=== PATIENT | male | born 1940 | race Caucasian/White ===

== ENCOUNTER 2017-04-22 16:43 | Observation (INO) | payer MEDICARE, OTHER ==
[~2017-04-22] VITALS: Ht 177.8 cm; Wt 70.0 kg
[~2017-04-22 16:43] MED LIST: APIX5TAB PO; ATOR1TAB18 PO; ATOR20TA15 PO; BRIL90TA PO; CARV12.52 PO; CIPR-9 PO; FEXO180T PO; FURO20TA PO; LISI10TA3 PO; PHEN-425 PO; SPIR25TA PO
[2017-04-22 16:45] VITALS: BP 133/93; PULSE 110; RESP 13; TEMP 97.3; O2SAT 96
[2017-04-22 16:56] VITALS: O2SAT 99
--- NOTE | 2017-04-22 17:08 | PD ---
HPI Chief Complaint: Cardiac Complaint Time Seen by Provider: 17:03 Travel History International Travel<30 days: No Contact w/Intl Traveler<30days: No Traveled to known affect area: No History of Present Illness HPI C/O CP , PRESSURE, 7/10, NONRAD. ALONG WITH IRREG HR, WANTS TO MAKE SURE " HEART IS OKAY" SINCE THE SENSATION REMINDS HIM OF HIS LAST HEART ATTACK. IN ADDITION TO PREVIOUS SYMPTOMS ALSO C/O GENERALIZED WEAKNESS AND LETHARGY ACCOMPANIED HIS LAST SET OF CHEST PRESSURE PCP IS DR PADGETT CARDIO IS [facility]GY : MULTIPLE BUT CONSISTENT WITH ABOVE PMHX: CAD WITH MULTIPLE STENTS, HTN, AFLUTTER S/P MULTIPLE ABLATIONS ON ELIQUIS [facility] Past Medical History Hx Anticoagulant Therapy: Yes (ELIQUIS) Arthritis: Yes Asthma: No Atrial Fibrillation: Yes Autoimmune Disease: No Blood Disorders: No Anxiety: No Depression: No Heart Rhythm Problems: Yes (ablation for a-flutter; now monitored for a- fib) Cancer: No Cardiac Catheterization: Yes (4 stents) Cardiovascular Problems: Yes (STENTS) High Cholesterol: Yes Chemotherapy: No Chest Pain: Yes Congestive Heart Failure: No COPD: No Cerebrovascular Accident: Yes ([place] 2016) Coronary Artery Disease: Yes Diabetes: No Diminished Hearing: No Endocrine: No Gastrointestinal Disorders: No GERD: No Glaucoma: No Genitourinary: No Headaches: Yes (OCCASIONAL) Hepatitis: No Hiatal Hernia: No Hypertension: Yes Immune Disorder: No Implanted Vascular Access Dvce: Yes Kidney Stones: No Musculoskeletal: Yes Neurologic: Yes Psychiatric: No Reproductive: No Respiratory: Yes Immunizations Current: No Migraines: No Myocardial Infarction: Yes Radiation Therapy: No Renal Failure: No Seizures: No Sickle Cell Disease: No Sleep Apnea: No Thyroid Disease: No Ulcer: No Past Surgical History Abdominal Surgery: No AICD: No Appendectomy: No Arteriovenous Shunt: No Cardiac Surgery: Yes (ablation for a- flutter) Cholecystectomy: No Coronary Artery Bypass Graft: No Coronary Stent: Yes Ear Surgery: No Endocrine Surgery: No Eye Surgery: No Genitourinary Surgery: No Gynecologic Surgery: No Insulin Pump: No Joint Replacement: Yes (R KNEE REPLACEMENT, RIGHT HIP ) Neurologic Surgery: No Oral Surgery: No Pacemaker: No Thoracic Surgery: No Tonsillectomy: Yes Other Surgery: Yes Social History Alcohol Use: No Tobacco Use: No Substance Use: No Allergies-Medications (Allergen,Severity, Reaction): Coded Allergies: diatrizoate meglumine (Verified Allergy, Intermediate, Rash, 04/23/17) Rash on trunk area gadobenic acid (Verified Allergy, Intermediate, Rash, 04/23/17) Rash on trunk area gadodiamide (Verified Allergy, Intermediate, Rash, 04/23/17) Rash on trunk area gadoteridol (Verified Allergy, Intermediate, Rash, 04/23/17) Rash on trunk area iodixanol (Verified Allergy, Intermediate, Rash, 04/23/17) Rash on trunk area iohexol (Verified Allergy, Intermediate, Rash, 04/23/17) Rash on trunk area metoprolol (Verified Allergy, Intermediate, hives, 04/23/17) morphine (Verified Allergy, Intermediate, pustular rash, itching, 04/23/17) naproxen (Verified Allergy, Intermediate, hives, 04/23/17) Reported Meds & Prescriptions Reported Meds & Active Scripts Active Reported Eliquis (Apixaban) 5 Mg Tab 5 Mg PO BID Fexofenadine (Fexofenadine HCl) 180 Mg Tab 180 Mg PO DAILY Lisinopril 10 Mg Tab 10 Mg PO DAILY Furosemide 20 Mg Tab 20 Mg PO DAILY Spironolactone 25 Mg Tab 25 Mg PO DAILY Atorvastatin (Atorvastatin Calcium) 80 Mg Tab 80 Mg PO HS Review of Systems Except as stated in HPI: all other systems reviewed are Neg Cardiovascular: Positive: Chest Pain or Discomfort, Palpitations, Irregular Rhythm Physical Exam Narrative GENERAL: SKIN: Warm and dry. HEAD: Atraumatic. Normocephalic. EYES: Pupils equal and round. No scleral icterus. No injection or drainage. ENT: No nasal bleeding or discharge. Mucous membranes pink and moist. NECK: Trachea midline. No JVD. CARDIOVASCULAR: TACHYCARDIC RATE and IRREGULAR rhythm. RESPIRATORY: No accessory muscle use. Clear to auscultation. Breath sounds equal bilaterally. GASTROINTESTINAL: Abdomen soft, non-tender, nondistended. Hepatic and splenic margins not palpable. MUSCULOSKELETAL: Extremities without clubbing, cyanosis, or edema. No obvious deformities. NEUROLOGICAL: Awake and alert. No obvious cranial nerve deficits. Motor grossly within normal limits. Five out of 5 muscle strength in the arms and legs. Normal speech. PSYCHIATRIC: Appropriate mood and affect; insight and judgment normal. Data Data Last Documented VS Vital Signs Date Time Temp Pulse Resp B/P (MAP) Pulse Ox O2 Delivery O2 Flow Rate FiO2 04/22/17 18:29 107 18 121/87 (98) 98 Room Air 04/22/17 16:45 97.3 Orders Orders Electrocardiogram (04/22/17 16:48) Complete Blood Count With Diff (04/22/17 16:48) Basic Metabolic Panel (Bmp) (04/22/17 16:48) Ckmb (Isoenzyme) Profile (04/22/17 16:48) Troponin I (04/22/17 16:48) Chest, Single Ap (04/22/17 16:48) Iv Access Insert/Monitor (04/22/17 16:48) Ecg Monitoring (04/22/17 16:48) Oxygen Administration (04/22/17 16:48) Oximetry (04/22/17 16:48) Diltiazem Inj (Cardizem Inj) (04/22/17 17:15) Ct Brain W/O Iv Contrast(Rout) (04/22/17 17:31) CKMB (04/22/17 17:10) CKMB% (04/22/17 17:10) Prothrombin Time / Inr (Pt) (04/22/17 18:42) Act Partial Throm Time (Ptt) (04/22/17 18:42) Place In Observation (04/22/17 18:42) Activity Bed Rest With Brp (04/22/17 18:42) Vital Signs (Adult) Q4H (04/22/17 18:42) Cardiac Rhythm .As Directed (04/22/17 18:42) Notify Dr: Other .PRN (04/22/17 18:42) Notify Dr. Parameters (04/22/17 18:42) Resp Oxygen Nasal Cannula (04/22/17 ) Ckmb (Isoenzyme) Profile (04/22/17 18:42) Ckmb (Isoenzyme) Profile (04/22/17 21:42) Troponin I (04/22/17 18:42) Troponin I (04/22/17 21:42) Electrocardiogram (04/22/17 21:42) ^ Obtain (04/22/17 18:42) Sodium Chlor 0.9% 1000 Ml Inj (Ns 1000 M (04/22/17 18:42) Sodium Chloride 0.9% Flush (Ns Flush) (04/22/17 18:45) Nitroglycerin Sl (Nitrostat Sl) (04/22/17 18:45) Sinter Feeder / Telemetry JC.Q8H (04/22/17 18:42) Admit Order (Ed Use Only) (04/22/17 18:45) Diltiazem Inj (Cardizem Inj) (04/22/17 18:45) Labs Laboratory Tests Test 04/22/17 17:10 White Blood Count 5.8 TH/MM3 Red Blood Count 4.32 MIL/MM3 Hemoglobin 14.0 GM/DL Hematocrit 42.1 % Mean Corpuscular Volume 97.5 FL Mean Corpuscular Hemoglobin 32.4 PG Mean Corpuscular Hemoglobin Concent 33.3 % Red Cell Distribution Width 13.3 % Platelet Count 192 TH/MM3 Mean Platelet Volume 9.5 FL Neutrophils (%) (Auto) 45.4 % Lymphocytes (%) (Auto) 43.0 % Monocytes (%) (Auto) 7.8 % Eosinophils (%) (Auto) 3.2 % Basophils (%) (Auto) 0.6 % Neutrophils # (Auto) 2.6 TH/MM3 Lymphocytes # (Auto) 2.5 TH/MM3 Monocytes # (Auto) 0.5 TH/MM3 Eosinophils # (Auto) 0.2 TH/MM3 Basophils # (Auto) 0.0 TH/MM3 CBC Comment DIFF FINAL Differential Comment Prothrombin Time 11.4 SEC Prothromb Time International Ratio 1.0 RATIO Activated Partial Thromboplast Time 30.8 SEC Blood Urea Nitrogen 29 MG/DL Creatinine 0.73 MG/DL Random Glucose 95 MG/DL Calcium Level 8.5 MG/DL Sodium Level 140 MEQ/L Potassium Level 4.1 MEQ/L Chloride Level 109 MEQ/L Carbon Dioxide Level 25.2 MEQ/L Anion Gap 6 MEQ/L Estimat Glomerular Filtration Rate 105 ML/MIN Total Creatine Kinase 130 U/L Creatine Kinase MB 3.3 NG/ML Troponin I LESS THAN 0.02 NG/ML MDM Medical Decision Making Medical Screen Exam Complete: Yes Emergency Medical Condition: Yes Medical Record Reviewed: Yes Interpretation(s) AFLUTTER, 110, LVH, Q WAVES ON INF LEADS Differential Diagnosis STEMI V NONSTEMI V CHF V ANEMIA Narrative Course PATIENT CHEST PRESSURE RESOLVED AND FIRST SET OF TROPONIN WERE NEGATIVE, WILL ADMIT TO CHEST PAIN CENTER FOR FURTHER EVALUATION AND CARE. Diagnosis Primary Impression: CHEST PAIN R/O WV Additional Impression: ATRIAL FLUTTER S/P CARDIZEM FOR RATE CONTROL Admitting Information Admitting Physician Requests: Observation Scripts Metoprolol Succinate ER 24 HR (Metoprolol Succinate ER 24 HR) 50 Mg Tab 50 MG PO DAILY for Blood Pressure Management, #30 TAB Prov: Cole Mathis 04/24/17 Mark Vitale MD Apr 22, 2017 17:08
[2017-04-22] MEDS ORDERED: DILTIAZEM HCL 25 MG/5 ML VIAL IV ONE ×2 (17:15→18:45)
--- NOTE | 2017-04-22 17:40 | RADRPT ---
EXAM DATE/TIME: 04/22/2017 17:05 [facility] COMPARISON: CHEST SINGLE AP, June 10, 2016, 12:12. INDICATIONS : Chest pain, shortness of breath and lightheaded. MEDICAL HISTORY : Myocardial infarction. SURGICAL HISTORY : Cardiac stent. ENCOUNTER: Initial ACUITY: 1 day PAIN SCORE: 5/10 LOCATION: Chest, midline. FINDINGS: A single view of the chest demonstrates the lungs to be symmetrically aerated without evidence of mas s, infiltrate or effusion. The cardiomediastinal contours are unremarkable. Osseous structures are intact. CONCLUSION: No acute disease. Catalino Nicholas MD on April 22, 2017 at 17:38 Board Certified Radiologist. This report was verified electronically.
[2017-04-22 17:51] LABS: AUTOMATED NEUTROPHIL # 2.6 TH/MM3 (1.8-7.7); BASOPHIL % 0.6 % (0.0-2.0); EOSINOPHIL # 0.2 TH/MM3 (0-0.4); EOSINOPHIL % 3.2 % (0.0-4.0); HEMATOCRIT 42.1 % (39.0-51.0); HEMO FLAGS DIFF FINAL; LYMPHOCYTE # 2.5 TH/MM3 (1.0-4.8); MEAN CELL VOLUME 97.5 FL (80.0-100.0); MEAN CORPUSCULAR HEMOGLOBIN 32.4 PG (27.0-34.0); MEAN CORPUSCULAR HGB CONC 33.3 % (32.0-36.0); MONO % 7.8 % (0.0-8.0); NEUT % 45.4 % (16.0-70.0); PLATELET COUNT 192 TH/MM3 (150-450); RED BLOOD COUNT 4.32 MIL/MM3 (4.50-5.90); RED CELL DISTRIBUTION WIDTH 13.3 % (11.6-17.2); WHITE BLOOD COUNT 5.8 TH/MM3 (4.0-11.0)
[2017-04-22 18:18] LABS: CREATINE KINASE 130 U/L (39-308)
--- NOTE | 2017-04-22 18:24 | RADRPT ---
EXAM DATE/TIME: 04/22/2017 18:11 [facility] COMPARISON: No previous studies available for comparison. INDICATIONS : Headaches with chest tightness. RADIATION DOSE: 48.57 CTDIvol (mGy) MEDICAL HISTORY : Cardiovascular disease. Cerebrovascular disease. Hypertension. SURGICAL HISTORY : None. ENCOUNTER: Initial ACUITY: 1 day PAIN SCALE: 2/10 LOCATION: cranial TECHNIQUE: Multiple contiguous axial images were obtained of the head. Using automated exposure control and adj ustment of the mA and/or kV according to patient size, radiation dose was kept as low as reasonably a chievable to obtain optimal diagnostic quality images. DICOM format image data is available electro nically for review and comparison. FINDINGS: CEREBRUM: The ventricles are normal for age. No evidence of midline shift, mass lesion, hemorrhage or acute in farction. No extra-axial fluid collections are seen. POSTERIOR FOSSA: The cerebellum and brainstem are intact. The 4th ventricle is midline. The cerebellopontine angle i s unremarkable. EXTRACRANIAL: The visualized portion of the orbits is intact. SKULL: The calvaria is intact. No evidence of skull fracture. CONCLUSION: Normal examination. Catalino Nicholas MD on April 22, 2017 at 18:22 Board Certified Radiologist. This report was verified electronically.
[2017-04-22 18:27] LABS: ANION GAP 6 MEQ/L (5-15); BICARBONATE 25.2 MEQ/L (21.0-32.0); BLOOD UREA NITROGEN 29 MG/DL (7-18); CHLORIDE 109 MEQ/L (98-107); GLOMERULAR FILTRATION RATE 105 ML/MIN (>89); POTASSIUM 4.1 MEQ/L (3.5-5.1); SODIUM (NA) 140 MEQ/L (136-145)
[2017-04-22 18:29] VITALS: BP 121/87; PULSE 107; RESP 18; O2SAT 98
[2017-04-22 18:30] LABS: CKMB 3.3 NG/ML (0.5-3.6)
[2017-04-22] MEDS ORDERED: SODIUM CHLORIDE 0.9% FLUSH 10 ML FLUSH IV FLUSH PRN (18:45)
[2017-04-22] MEDS ORDERED: NITROGLYCERIN 0.4 MG SL 25 TABS/BTL SL PRN (18:45)
[2017-04-22 19:07] LABS: APTT (PATIENT) 30.8 SEC (24.3-30.1); PROTHROMBIN TIME - PATIENT 11.4 SEC (9.8-11.6)
[2017-04-22] MEDS: SODIUM CHLOR 0.9% 1000 ML INJ 1,000 ML IV SCH (21:22)
[2017-04-22 21:29] VITALS: BP 123/83; PULSE 70; RESP 17; TEMP 97.7; O2SAT 96
[2017-04-22 21:52] VITALS: PULSE 60
[2017-04-22 23:25] VITALS: BP 111/60; PULSE 60; RESP 18; TEMP 97.5; O2SAT 95
[2017-04-23] VITALS (11 sets, daily range): BP systolic 113–130; BP diastolic 56–80; PULSE 58–79; RESP 16–20; TEMP 97.6–98.3; O2SAT 95–97
[2017-04-23] MEDS: SODIUM CHLOR 0.9% 1000 ML INJ 1,000 ML IV SCH (04:42)
--- NOTE | 2017-04-23 05:58 | EKG ---
Date Performed: 04/22/2017 Time Performed: 17:01:55 PTAGE: 76 years EKG: ATRIAL FLUTTER/TACHYCARDIA WITH RAPID VENTRICULAR RESPONSE MINIMAL VOLTAGE CRITERIA FOR LVH , CONSIDER NORMAL VARIANT INFERIOR MYOCARDIAL INFARCTION ABNORMAL ECG INTERPRETATION BASED ON A DEFAU LT AGE OF 42 YEARS PREVIOUS TRACING : 06/10/2016 12.14 DOCTOR: Wesley Lacy Interpretating Date/Time 04/23/2017 05:55:13
[2017-04-23] MEDS ORDERED: ONDANSETRON HCL 4 MG/2 ML VIAL IV PUSH PRN (07:45)
[2017-04-23] MEDS ORDERED: ACETAMINOPHEN 500 MG CPLT PO PRN (07:45)
--- NOTE | 2017-04-23 08:48 | HHI.HP ---
[facility] Primary Care Physician Xiao Pink MD Chief Complaint Chest tightness, irregular heart beat History of Present Illness 76-year-old male with history of A. fib, congestive heart failure, and coronary artery disease including multiple cardiac stents presents to emergency room for further evaluation of chest tightness and irregular heartbeat. Over past month reports 3 episodes of irregular heartbeat, similar to past A. fib. Episodes were brief and he did not think much of episodes. Yesterday afternoon experience generalize chest tightness and lethargy. He proceeded to lay down and take a nap. Upon awakening he continue to have chest tightness, lethargy, accompanied with irregular palpitations, dizziness, and mild dyspnea. 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 Reported heart beat to be "erratic." Duration hours, reporting symptoms did not stop until multiple doses of medication given in ER. Medications given in ER Cardizem total dosing of 30mg. Episode above reminded him of same feelings he had with last heart attach , therefore decided to come to ER. He is active in his grandchildren's lives and wanted to be sure his "heart was okay." Review of Systems General: No fatigue,weakness, fever, chills, recent illness, or change in appetite. Has been in his general state of health, in fact reports helping take care of young grandchildren ages 2 and 4. HEENT: No SIEGEL, no vision changes, no nasal congestion or drainage, no dysphasia. CV: As stated above. No feelings of irregular heart beat over night. Dizziness has also resolved. No cardiac issues (other than stated above) since cardioversion March 2016. Weighs self daily and denies any change in weight or increase in edema. Reports at one point he was to have a pacemaker inserted but due to increase in EF was not placed. Follows with Dr. Fowler, last seen her in January 2017, at that time Brilinta stopped. After current Eliquis prescription complete, will be switched to warfarin. RESP: No SOB, cough, recent URI, or sputum production. GI: No nausea, vomiting, or bowel changes. No unintentional weight gain or weight loss. : No dysuria EXT: No lower leg edema, no paraesthesias MS: No discomfort or change in ROM NEURO: No difficulty with balance, LOC, or motor/sensory deficits PSYCH: No anxiety, depression, or suicidal ideation. History of suicidal ideation and depression s/p last cardiac catheterization complications with medications, reports those symptoms have all resolved. SKIN: No rashes, no concerning lesions Past Family Social History Allergies: Coded Allergies: diatrizoate meglumine (Verified Allergy, Intermediate, Rash, 04/23/17) Rash on trunk area gadobenic acid (Verified Allergy, Intermediate, Rash, 04/23/17) Rash on trunk area gadodiamide (Verified Allergy, Intermediate, Rash, 04/23/17) Rash on trunk area gadoteridol (Verified Allergy, Intermediate, Rash, 04/23/17) Rash on trunk area iodixanol (Verified Allergy, Intermediate, Rash, 04/23/17) Rash on trunk area iohexol (Verified Allergy, Intermediate, Rash, 04/23/17) Rash on trunk area metoprolol (Verified Allergy, Intermediate, hives, 04/23/17) morphine (Verified Allergy, Intermediate, pustular rash, itching, 04/23/17) naproxen (Verified Allergy, Intermediate, hives, 04/23/17) Past Medical History Afib, CHF, cardiac stents, NSVT, Junctional (rajiv) bradycardia, depression Past Surgical History Cardioversion (03/17/2016), multiple ablations (2or3), right hip replacement, tonsillectomy Reported Medications Reported Meds & Active Scripts Active Reported Eliquis (Apixaban) 5 Mg Tab 5 Mg PO BID (after current prescription complete is switching to warfarin) Fexofenadine (Fexofenadine HCl) 180 Mg Tab 180 Mg PO DAILY Lisinopril 10 Mg Tab 10 Mg PO DAILY Carvedilol 12.5 Mg Tab 12.5 Mg PO BID Furosemide 20 Mg Tab 20 Mg PO DAILY Spironolactone 25 Mg Tab 25 Mg PO DAILY Atorvastatin (Atorvastatin Calcium) 80 Mg Tab 80 Mg PO HS Active Ordered Medications Current Medications Medications (Trade) Dose Ordered Sig/Desire Route Start Time Stop Time Status Last Admin Sodium Chloride 1,000 ml @ 100 mls/hr Q10H IV 04/22/17 18:42 04/22/17 21:22 (NS Flush) 2 ml UNSCH PRN IV FLUSH 04/22/17 18:45 04/22/17 21:21 (Nitrostat Sl) 0.4 mg Q5M PRN SL 04/22/17 18:45 (NS Flush) 2 ml BID IV FLUSH 04/23/17 09:00 (Tylenol) 500 mg Q4H PRN PO 04/23/17 07:45 (Zofran Inj) 4 mg Q6H PRN IV PUSH 04/23/17 07:45 (Aspirin) 325 mg DAILY PO 04/23/17 09:00 Family History Noncontributory for early onset cardiovascular disease. Social History Known coronary artery disease and hyperlipidemia. No known diabetes or hypertension. Quit smoking over 20 years ago. Denies any alcohol. Endorses an active lifestyle. . Assists in taking care of young grandchildren. Past cardiac testing 01/28/2016 Cardiac catheterization-STEMI alert (Dr. Fowler)-Conclusions: 1. STEMI alert. 2. LV impairment with ad EF of 35-40%. 3. Culprit circumflex OM system. 4. Successful PTCA of the proximal circumflex and obtuse marginal. 5. Occluded mid-circumflex that was not able to be opened. 01/31/16 Echocardiogram-Systolic function decreased, EF 35%, diffuse hypokinesis , akineses of basal inferior myocardium. 03/17/2016 Cardioversion-(Dr. Collazo)-Successful cardioversion. Stemi alert 01/28/2016, 6 weeks prior to Stemi alert had 2 cardiac stents placed while in [place], [place]. Follows with Dr. Fowler, last seen January 2017. Brilinta stopped at that time. After current Eliquis prescription complete, will be switching to Warfarin due to cost of Eliquis. No recent stress testing or cardiac issues. 8 years ago cardiac ablation for atrial flutter in [place]. Physical Exam Vital Signs Vital Signs Date Time Temp Pulse Resp B/P (MAP) Pulse Ox O2 Delivery O2 Flow Rate FiO2 04/23/17 04:00 60 04/23/17 03:26 97.6 63 20 130/68 (88) 96 04/23/17 00:01 60 04/22/17 23:25 97.5 60 18 111/60 (77) 95 04/22/17 21:52 60 04/22/17 21:29 97.7 70 17 123/83 (96) 96 04/22/17 18:29 107 18 121/87 (98) 98 Room Air 04/22/17 16:56 99 Room Air 04/22/17 16:56 99 Room Air 04/22/17 16:45 97.3 110 13 133/93 (106) 96 Physical Exam GENERAL: Alert WN, WD, NAD, pleasant, elderly male HEAD: NC, AT EYES: Sclera clear, conjunctiva without injection, pupils equal and round ENT: Mucous membranes pink and moist NECK: Supple, no masses, trachea midline CV: Regular rate with occasional irregular or premature beats, without murmur, rub, gallop, no JVD, S1-S2 no S3-S4. Chest wall nontender with palpation. RESP: Clear lungs throughout bilateral, no crackles, wheeze, rhonchi, symmetrical chest rise, nonlabored, able to speak in full sentences ABD: Soft, NT, ND, no masses, positive bowel tones EXT: Pulses +24, no dependent edema MS: Normal tone 4 extremities, nontender, no obvious deformities, full range of motion NEURO: CN II through CN XII grossly intact, motor strength 5/5 PSYCH: A+O 3, flat affect, appropriate speech, appropriate mood and affect, insight and judgment, slow to response at times, poor historian SKIN: Normal turgor, normal texture, no lesions, no rashes, brisk cap refill, even hair distribution Laboratory Laboratory Tests Test 04/22/17 17:10 04/22/17 21:20 04/22/17 23:15 White Blood Count 5.8 Red Blood Count 4.32 Hemoglobin 14.0 Hematocrit 42.1 Mean Corpuscular Volume 97.5 Mean Corpuscular Hemoglobin 32.4 Mean Corpuscular Hemoglobin Concent 33.3 Red Cell Distribution Width 13.3 Platelet Count 192 Mean Platelet Volume 9.5 Neutrophils (%) (Auto) 45.4 Lymphocytes (%) (Auto) 43.0 Monocytes (%) (Auto) 7.8 Eosinophils (%) (Auto) 3.2 Basophils (%) (Auto) 0.6 Neutrophils # (Auto) 2.6 Lymphocytes # (Auto) 2.5 Monocytes # (Auto) 0.5 Eosinophils # (Auto) 0.2 Basophils # (Auto) 0.0 CBC Comment DIFF FINAL Differential Comment Prothrombin Time 11.4 Prothromb Time International Ratio 1.0 Activated Partial Thromboplast Time 30.8 Blood Urea Nitrogen 29 Creatinine 0.73 Random Glucose 95 Calcium Level 8.5 Sodium Level 140 Potassium Level 4.1 Chloride Level 109 Carbon Dioxide Level 25.2 Anion Gap 6 Estimat Glomerular Filtration Rate 105 Total Creatine Kinase 130 96 92 Creatine Kinase MB 3.3 Troponin I LESS THAN 0.02 0.02 0.02 Result Diagram: 04/22/17 1710 04/22/17 1710 Imaging Last Impressions Head CT 04/22/17 1731 Signed Impressions: Service Date/Time: Saturday, April 22, 2017 18:11 - CONCLUSION: Normal examination. Catalino Nicholas MD Chest X-Ray 04/22/17 1648 Signed Impressions: Service Date/Time: Saturday, April 22, 2017 17:05 - CONCLUSION: No acute disease. Catalino Nicholas MD Course EKG First EKG 2-1 aflutter Second and Third EKG NSR, normal axis, no st t segment changes Caprini VTE Risk Assessment Caprini VTE Risk Assessment: Mod/High Risk (score >= 2) Caprini Risk Assessment Model Point Value = 1 Point Value = 2 Point Value = 3 Point Value = 5 Age 41-60 Minor surgery BMI > 25 kg/m2 Swollen legs Varicose veins or History of unexplained or recurrent spontaneous Oral contraceptives or hormone replacement Sepsis (< 1 month) Serious lung disease, including pneumonia (< 1 month) Abnormal pulmonary function Acute myocardial infarction Congestive heart failure (< 1 month) History of inflammatory bowel disease Medical patient at bed rest Age 61-74 Arthroscopic surgery Major open surgery (> 45 min) Laparoscopic surgery (> 45 min) Malignancy Confined to bed (> 72 hours) Immobilizing plaster cast Central venous access Age >= 75 History of VTE Family history of VTE Factor V Leiden Prothrombin 21324H Lupus anticoagulant Anticardiolipin antibodies Elevated serum homocysteine Heparin-induced thrombocytopenia Other congenital or acquired thrombophilia Stroke (< 1 month) Elective arthroplasty Hip, pelvis, or leg fracture Acute spinal cord injury (< 1 month) Prophylaxis Regimen Total Risk Factor Score Risk Level Prophylaxis Regimen 0-1 Low Early ambulation 2 Moderate Order ONE of the following: *Sequential Compression Device (SCD) *Heparin 5000 units SQ BID 3-4 Higher Order ONE of the following medications: *Heparin 5000 units SQ TID *Enoxaparin/Lovenox 40 mg SQ daily (WT < 150 kg, CrCl > 30 mL/min) *Enoxaparin/Lovenox 30 mg SQ daily (WT < 150 kg, CrCl > 10-29 mL/min) *Enoxaparin/Lovenox 30 mg SQ BID (WT < 150 kg, CrCl > 30 mL/min) AND/OR *Sequential Compression Device (SCD) 5 or more Highest Order ONE of the following medications: *Heparin 5000 units SQ TID (Preferred with Epidurals) *Enoxaparin/Lovenox 40 mg SQ daily (WT < 150 kg, CrCl > 30 mL/min) *Enoxaparin/Lovenox 30 mg SQ daily (WT < 150 kg, CrCl > 10-29 mL/min) *Enoxaparin/Lovenox 30 mg SQ BID (WT < 150 kg, CrCl > 30 mL/min) AND *Sequential Compression Device (SCD) Assessment and Plan Assessment and Plan #1 Chest pain-admitted to chest pain center. Ruled out with 3 sets of cardiac enzymes, EKGs, and monitored on telemetry overnight. Will be seen and evaluated by Dr. Darinel Zavaleta. Discuss case in length with Dr. Zavaleta who agrees transferring care to medical team appropriate due complexity of history of paroxysmal arrhythmia and coronary artery disease. Consult to hospital team placed. #2 Paroxysmal arrhythmia-monitored reviewed, occasionally bigeminy, couplets, and PVCs, and nonsustained SVT, otherwise NSR. Did not detect any atrial flutter or atrial fibrillation. Given Cardizem x2 doses (10mgx1 and 20mgx1) in ED, no plans to continue antiarrhythmic at this time, continue to monitor. #3 Congestive heart failure-no acute findings, no JVD or rales. Continue furosemide, spirolactone, and lisinopril #4 History of CAD-continue carvedilol, Eliquis, and atorvastatin Zonia Gallegos Apr 23, 2017 08:48
[2017-04-23] MEDS: SODIUM CHLORIDE 0.9% FLUSH 10 ML FLUSH IV FLUSH SCH ×2 (10:19→20:07)
[2017-04-23] MEDS: ASPIRIN 325 MG TAB PO SCH (10:19)
[2017-04-23] MEDS: FUROSEMIDE 20 MG TAB PO SCH (10:19)
[2017-04-23] MEDS: CARVEDILOL 12.5 MG TAB PO SCH ×2 (10:20→20:07)
[2017-04-23] MEDS: SPIRONOLACTONE 25 MG TAB PO SCH (10:20)
[2017-04-23] MEDS: LORATADINE 10 MG TAB PO SCH (10:20)
[2017-04-23] MEDS: APIXABAN 5 MG TABLET PO SCH ×2 (10:20→20:07)
[2017-04-23] MEDS: LISINOPRIL 10 MG TAB PO SCH (10:20)
--- NOTE | 2017-04-23 12:26 | EKG ---
Date Performed: 04/22/2017 Time Performed: 23:22:37 PTAGE: 76 years EKG: Sinus rhythm INFERIOR MYOCARDIAL INFARCTION ABNORMAL ECG PREVIOUS TRACING : 04/22/2017 21.31 Since previous tracing, no significant change noted DOCTOR: Darinel Zavaleta Interpretating Date/Time 04/23/2017 12:25:57
--- NOTE | 2017-04-23 12:26 | EKG ---
Date Performed: 04/22/2017 Time Performed: 21:31:41 PTAGE: 76 years EKG: Sinus rhythm POSSIBLE LEFT VENTRICULAR HYPERTROPHY INFERIOR MYOCARDIAL INFARCTION ABNORMAL ECG INTERPRETATION BAS ED ON A DEFAULT AGE OF 40 YEARS PREVIOUS TRACING : 04/22/2017 17.01 Compared to previous tracing,SVT or atrial flutter co nverted to sinus rhythm. DOCTOR: Darinel Zavaleta Interpretating Date/Time 04/23/2017 12:25:25
--- NOTE | 2017-04-23 15:48 | PD.CONS ---
[facility] Request[facility] By Dr. Zavaleta Reason for Consult Medical management Primary Care Physician Xiao Pink MD Diagnoses: (1) HTN (hypertension) (2) Atrial fibrillation History of Present Illness Mr. Chacko is a 76-year-old male patient with a known medical history of CAD with multiple stents, atrial fibrillation who presented to the ED with complaints of chest tightness and feelings of irregular heartbeat. Patient seen and examined with myself and Dr. Schuler. Patient states that he has been feeling this irregular heart beat for over 3 months now, sees Dr. Fowler, last seen in January, in the outpatient setting who is managing his atrial fibrillation and CAD. Patient states that these episodes will come and go then resolve itself on its own. This episode was associated with chest tightness which brought him here to the ED. He does admit to associate mild dizziness and shortness of breath. In the ED patient was given a total of 30 mg IV Cardizem. Upon assessing the patient, rhythm is in NSR, p waves present with no evidence of arrhythmias. EKG reviewed from presentation which showed paroxysmal arrhythmia, occasional bigeminy, couplets and PVCs and nonsustained SVT. Denies any recent illness including fever, chills, cough, shortness of breath, abdominal pain, nausea, vomiting, diarrhea or dysuria. Last stress test reported 8 years ago. Review of Systems Constitutional: DENIES: Fever, Chills Respiratory: DENIES: Cough, Shortness of breath Cardiovascular: COMPLAINS OF: Chest pain (tightness) Gastrointestinal: DENIES: Black stools, Constipation, Diarrhea, Nausea, Vomiting Except as stated in HPI: all other systems reviewed are Neg Past Family Social History Allergies: Coded Allergies: diatrizoate meglumine (Verified Allergy, Intermediate, Rash, 04/23/17) Rash on trunk area gadobenic acid (Verified Allergy, Intermediate, Rash, 04/23/17) Rash on trunk area gadodiamide (Verified Allergy, Intermediate, Rash, 04/23/17) Rash on trunk area gadoteridol (Verified Allergy, Intermediate, Rash, 04/23/17) Rash on trunk area iodixanol (Verified Allergy, Intermediate, Rash, 04/23/17) Rash on trunk area iohexol (Verified Allergy, Intermediate, Rash, 04/23/17) Rash on trunk area metoprolol (Verified Allergy, Intermediate, hives, 04/23/17) morphine (Verified Allergy, Intermediate, pustular rash, itching, 04/23/17) naproxen (Verified Allergy, Intermediate, hives, 04/23/17) Past Medical History Atrial fibrillation CAD with stent placement Depression CHF Nonsustained VT Past Surgical History Right hip replacement Knee replacement Tonsillectomy Cardioversion Multiple ablations Reported Medications Active Reported Eliquis (Apixaban) 5 Mg Tab 5 Mg PO BID Fexofenadine (Fexofenadine HCl) 180 Mg Tab 180 Mg PO DAILY Lisinopril 10 Mg Tab 10 Mg PO DAILY Carvedilol 12.5 Mg Tab 12.5 Mg PO BID Furosemide 20 Mg Tab 20 Mg PO DAILY Spironolactone 25 Mg Tab 25 Mg PO DAILY Atorvastatin (Atorvastatin Calcium) 80 Mg Tab 80 Mg PO HS Active Ordered Medications Current Medications Medications (Trade) Dose Ordered Sig/Desire Route Start Time Stop Time Status Last Admin (NS Flush) 2 ml UNSCH PRN IV FLUSH 04/22/17 18:45 04/22/17 21:21 (Nitrostat Sl) 0.4 mg Q5M PRN SL 04/22/17 18:45 (NS Flush) 2 ml BID IV FLUSH 04/23/17 09:00 04/23/17 10:19 (Tylenol) 500 mg Q4H PRN PO 04/23/17 07:45 04/23/17 10:21 (Zofran Inj) 4 mg Q6H PRN IV PUSH 04/23/17 07:45 (Aspirin) 325 mg DAILY PO 04/23/17 09:00 04/23/17 10:19 (Eliquis) 5 mg BID PO 04/23/17 09:00 04/23/17 10:20 (Lipitor) 80 mg HS PO 04/23/17 21:00 (Coreg) 12.5 mg BID PO 04/23/17 09:00 04/23/17 10:20 (Lasix) 20 mg DAILY PO 04/23/17 09:00 04/23/17 10:19 (Prinivil) 10 mg DAILY PO 04/23/17 09:00 04/23/17 10:20 (Aldactone) 25 mg DAILY PO 04/23/17 09:00 04/23/17 10:20 (Claritin) 10 mg DAILY PO 04/23/17 09:15 04/23/17 10:20 Family History Denies any significant family medical history. Social History Denies any current tobacco use. States he quit over 20 years ago. Denies any alcohol use. Denies any illicit drug use. Physical Exam Vital Signs Vital Signs Date Time Temp Pulse Resp B/P (MAP) Pulse Ox O2 Delivery O2 Flow Rate FiO2 04/23/17 13:33 97.6 58 16 121/80 (94) 96 04/23/17 09:42 97.8 60 16 128/77 (94) 96 04/23/17 04:00 60 04/23/17 03:26 97.6 63 20 130/68 (88) 96 04/23/17 00:01 60 04/22/17 23:25 97.5 60 18 111/60 (77) 95 04/22/17 21:52 60 04/22/17 21:29 97.7 70 17 123/83 (96) 96 04/22/17 18:29 107 18 121/87 (98) 98 Room Air 04/22/17 16:56 99 Room Air 04/22/17 16:56 99 Room Air 04/22/17 16:45 97.3 110 13 133/93 (106) 96 Physical Exam GENERAL: This is a well-nourished, well-developed patient, in no apparent distress. SKIN: No rashes, ecchymoses or lesions. Cool and dry. HEAD: Atraumatic. Normocephalic. No temporal or scalp tenderness. EYES: Pupils equal round and reactive. Extraocular motions intact. No scleral icterus. No injection or drainage. ENT: Nose without bleeding, purulent drainage or septal hematoma. Throat without erythema, tonsillar hypertrophy or exudate. Uvula midline. Airway patent. NECK: Trachea midline. No JVD or lymphadenopathy. Supple, nontender, no meningeal signs. CARDIOVASCULAR: Regular rate and rhythm without murmurs, gallops, or rubs. RESPIRATORY: Clear to auscultation. Breath sounds equal bilaterally. No wheezes , rales, or rhonchi. GASTROINTESTINAL: Abdomen soft, non-tender, nondistended. No guarding. MUSCULOSKELETAL: Extremities without clubbing, cyanosis, or edema. No joint tenderness, effusion, or edema noted. NEUROLOGICAL: Awake and alert. Cranial nerves II through XII intact. Motor and sensory grossly within normal limits. Five out of 5 muscle strength in all muscle groups. Normal speech. Laboratory Laboratory Tests Test 04/22/17 17:10 04/22/17 21:20 04/22/17 23:15 White Blood Count 5.8 Red Blood Count 4.32 Hemoglobin 14.0 Hematocrit 42.1 Mean Corpuscular Volume 97.5 Mean Corpuscular Hemoglobin 32.4 Mean Corpuscular Hemoglobin Concent 33.3 Red Cell Distribution Width 13.3 Platelet Count 192 Mean Platelet Volume 9.5 Neutrophils (%) (Auto) 45.4 Lymphocytes (%) (Auto) 43.0 Monocytes (%) (Auto) 7.8 Eosinophils (%) (Auto) 3.2 Basophils (%) (Auto) 0.6 Neutrophils # (Auto) 2.6 Lymphocytes # (Auto) 2.5 Monocytes # (Auto) 0.5 Eosinophils # (Auto) 0.2 Basophils # (Auto) 0.0 CBC Comment DIFF FINAL Differential Comment Prothrombin Time 11.4 Prothromb Time International Ratio 1.0 Activated Partial Thromboplast Time 30.8 Blood Urea Nitrogen 29 Creatinine 0.73 Random Glucose 95 Calcium Level 8.5 Sodium Level 140 Potassium Level 4.1 Chloride Level 109 Carbon Dioxide Level 25.2 Anion Gap 6 Estimat Glomerular Filtration Rate 105 Total Creatine Kinase 130 96 92 Creatine Kinase MB 3.3 Troponin I LESS THAN 0.02 0.02 0.02 Result Diagram: 04/22/17 1710 04/22/17 1710 Imaging Last Impressions Head CT 04/22/17 1731 Signed Impressions: Service Date/Time: Saturday, April 22, 2017 18:11 - CONCLUSION: Normal examination. Catalino Nicholas MD Chest X-Ray 04/22/17 1648 Signed Impressions: Service Date/Time: Saturday, April 22, 2017 17:05 - CONCLUSION: No acute disease. Catalino Nicholas MD Assessment and Plan Assessment and Plan Mr. Chacko is a 76-year-old male patient with a known medical history of CAD with multiple stents, atrial fibrillation who presented to the ED with complaints of chest tightness and feelings of irregular heartbeat. This has reportedly been happening for over 3 months but this presentation was associated with chest tightness, dizziness and lethargy. Patient given Cardizem a total of 30 mg IV in ED. Atypical chest pain suspect secondary to arrhythmia History of CAD with multiple stent placement History of atrial fibrillation on Eliquis Hyperlipidemia, chronic Systolic congestive heart failure - EKG reviewed showing paroxysmal arrhythmia with occasional bigeminy, couplets, PVCs and nonsustained SVT. Patient seen in the chest pain center and now admitted to the hospital for formal cardiology consultation. Patient known to Dr. Fowler, appreciate input. - Serial troponins flat. EKGs reviewed. Continue to monitor on continuous telemetry. - Last ECHO in EMR 01/2016 reviewed showing EF 35%. - Monitor BP closely. Continue carvedilol, Eliquis and atorvastatin. Continue furosemide, spirolactone and lisinopril. DVT Prophylaxis: SCDs/Eileen Cool Apr 23, 2017 15:48
[2017-04-23] MEDS ORDERED: ATORVASTATIN 80 MG TAB PO SCH (21:00)
--- NOTE | 2017-04-23 22:36 | PD.CONS ---
HPI Consult Requested By Primary Care Physician Xiao Pink MD History of Present Illness 76-year-old male with history of A. fib on Eliquis, congestive heart failure, and coronary artery disease/PCI presents to emergency room for further evaluation of atypical chest pain and irregular heartbeat. He reports that for the past month he has been having brief episodes of on & off palpitations. However yesterday the palpitations were associated with chest tightness and weakness for which he decided to come to the ER. In the ER we was found in Afib with RVR. Cardizem given in the ER. Cardiology consulted for Afib management. Review of Systems Consitutional: DENIES: Fatigue, Fever, Chills, Weight gain, Weight loss Eyes: DENIES: Amaurosis Fugax, Change in vision HEENT: DENIES: Lightheadedness, Change in hearing Respiratory: DENIES: See HPI, Cough, Snoring, Shortness of breath, Wheezing, Sputum production Cardiovascular: COMPLAINS OF: Palpitations, DENIES: See HPI, Chest pain, Syncope, Tachycardia Gastrointestinal: DENIES: Nausea, Vomiting, Change in bowel habits, Reflux, Bloody stools, Melena Genitourinary: DENIES: Urinary incontinence, Difficulty voiding Integumentary: DENIES: Rash Neurologic: DENIES: Tingling or numbness, Memory problems, Poor Balance, Stroke symptoms Musculoskeletal: DENIES: Joint pain, Muscle pain, Limited range of motion, Back pain Psychiatric: DENIES: Anxiety, Depression, Sleep disturbances Hematologic: DENIES: Bruising tendencies, Bleeding tendencies Endocrine: DENIES: Weight gain, Weight loss, Thyroid disease Past Family Social History Allergies: Coded Allergies: diatrizoate meglumine (Verified Allergy, Intermediate, Rash, 04/23/17) Rash on trunk area gadobenic acid (Verified Allergy, Intermediate, Rash, 04/23/17) Rash on trunk area gadodiamide (Verified Allergy, Intermediate, Rash, 04/23/17) Rash on trunk area gadoteridol (Verified Allergy, Intermediate, Rash, 04/23/17) Rash on trunk area iodixanol (Verified Allergy, Intermediate, Rash, 04/23/17) Rash on trunk area iohexol (Verified Allergy, Intermediate, Rash, 04/23/17) Rash on trunk area metoprolol (Verified Allergy, Intermediate, hives, 04/23/17) morphine (Verified Allergy, Intermediate, pustular rash, itching, 04/23/17) naproxen (Verified Allergy, Intermediate, hives, 04/23/17) Past Medical History Atrial fibrillation CAD with stent placement Depression CHF Nonsustained VT Past Surgical History Right hip replacement Knee replacement Tonsillectomy Cardioversion Multiple ablations Reported Medications Reported Meds & Active Scripts Active Reported Eliquis (Apixaban) 5 Mg Tab 5 Mg PO BID Fexofenadine (Fexofenadine HCl) 180 Mg Tab 180 Mg PO DAILY Lisinopril 10 Mg Tab 10 Mg PO DAILY Carvedilol 12.5 Mg Tab 12.5 Mg PO BID Furosemide 20 Mg Tab 20 Mg PO DAILY Spironolactone 25 Mg Tab 25 Mg PO DAILY Atorvastatin (Atorvastatin Calcium) 80 Mg Tab 80 Mg PO HS Active Ordered Medications Current Medications Medications (Trade) Dose Ordered Sig/Desire Route Start Time Stop Time Status Last Admin (NS Flush) 2 ml UNSCH PRN IV FLUSH 04/22/17 18:45 04/22/17 21:21 (Nitrostat Sl) 0.4 mg Q5M PRN SL 04/22/17 18:45 (NS Flush) 2 ml BID IV FLUSH 04/23/17 09:00 04/23/17 20:07 (Tylenol) 500 mg Q4H PRN PO 04/23/17 07:45 04/23/17 10:21 (Zofran Inj) 4 mg Q6H PRN IV PUSH 04/23/17 07:45 (Aspirin) 325 mg DAILY PO 04/23/17 09:00 04/23/17 10:19 (Eliquis) 5 mg BID PO 04/23/17 09:00 04/23/17 20:07 (Lipitor) 80 mg HS PO 04/23/17 21:00 04/23/17 20:07 (Coreg) 12.5 mg BID PO 04/23/17 09:00 04/23/17 20:07 (Lasix) 20 mg DAILY PO 04/23/17 09:00 04/23/17 10:19 (Prinivil) 10 mg DAILY PO 04/23/17 09:00 04/23/17 10:20 (Aldactone) 25 mg DAILY PO 04/23/17 09:00 04/23/17 10:20 (Claritin) 10 mg DAILY PO 04/23/17 09:15 04/23/17 10:20 Physical Exam Vital Signs Vital Signs Date Time Temp Pulse Resp B/P (MAP) Pulse Ox O2 Delivery O2 Flow Rate FiO2 04/23/17 19:58 97.7 77 18 119/64 (82) 95 04/23/17 16:00 97.9 63 16 119/71 (87) 97 04/23/17 15:04 65 04/23/17 13:33 97.6 58 16 121/80 (94) 96 04/23/17 09:42 97.8 60 16 128/77 (94) 96 04/23/17 07:22 61 04/23/17 04:00 60 04/23/17 03:26 97.6 63 20 130/68 (88) 96 04/23/17 00:01 60 04/22/17 23:25 97.5 60 18 111/60 (77) 95 Physical Exam Last Impressions Head CT 04/22/17 173 Signed Impressions: Service Date/Time: Saturday, April 22, 2017 18:11 - CONCLUSION: Normal examination. Catalino Nicholas MD Chest X-Ray 04/22/171647 Signed Impressions: Service Date/Time: Saturday, April 22, 2017 17:05 - CONCLUSION: No acute disease. Catalino Nicholas MD Laboratory Laboratory Tests Test 04/22/17 23:15 Total Creatine Kinase 92 Troponin I 0.02 Result Diagram: 04/22/17 1710 04/22/17 171 Imaging Last Impressions Head CT 04/22/171730 Signed Impressions: Service Date/Time: Saturday, April 22, 2017 18:11 - CONCLUSION: Normal examination. Catalino Nicholas MD Chest X-Ray 04/22/171647 Signed Impressions: Service Date/Time: Saturday, April 22, 2017 17:05 - CONCLUSION: No acute disease. Catalino Nicholas MD Assessment and Plan Problem List: (1) Atrial fibrillation ICD Codes: I48.91 - Atrial fibrillation Status: Chronic Plan: 76 y/o M admitted with complaints of palpitations and atypical chest pain , found to be in Afib with RVR. Afib now controlled. CEx3 negative. Chest pain free. Recommendations: 1. Cont rate control for afib 2. Cont OAC with Eliquis 3. Aggressive medical management for CAD 4. F/U with Cardiology upon discharge Dr. Fowler to see in AM. (2) HTN (hypertension) ICD Codes: I10 - Essential (primary) hypertension Status: Acute (3) Ischemic cardiomyopathy ICD Codes: I25.5 - Ischemic cardiomyopathy Status: Acute (4) Atrial flutter ICD Codes: I48.92 - Atrial flutter Status: Chronic (5) NSVT (nonsustained ventricular tachycardia) ICD Codes: I47.2 - Ventricular tachycardia Status: Acute Lena-Wesley Hillman MD Apr 23, 2017 22:36
[2017-04-24] VITALS (8 sets, daily range): BP systolic 110–131; BP diastolic 58–65; PULSE 57–86; RESP 16–20; TEMP 97.5–97.9; O2SAT 95–98
--- NOTE | 2017-04-24 03:25 | HHI.PR ---
Addendum to Inpatient Note Addendum Reason: Additional Documentation Additional Information The patient had a 5 beat run of V. tach noted on telemetry this morning. Patient was asymptomatic vital signs were stable. I have ordered a troponin I and BMP. I will also check magnesium level. Patient has history of ventricular irritability likely secondary to EF 35%. May need an AICD if this persists. Viola Daniels Apr 24, 2017 03:25
--- NOTE | 2017-04-24 07:43 | PD.CARD.PN ---
Subjective Subjective Remarks PT without complaints Objective Medications Current Medications Medications (Trade) Dose Ordered Sig/Desire Route Start Time Stop Time Status Last Admin (NS Flush) 2 ml UNSCH PRN IV FLUSH 04/22/17 18:45 04/22/17 21:21 (Nitrostat Sl) 0.4 mg Q5M PRN SL 04/22/17 18:45 (NS Flush) 2 ml BID IV FLUSH 04/23/17 09:00 04/23/17 20:07 (Tylenol) 500 mg Q4H PRN PO 04/23/17 07:45 04/23/17 10:21 (Zofran Inj) 4 mg Q6H PRN IV PUSH 04/23/17 07:45 (Aspirin) 325 mg DAILY PO 04/23/17 09:00 04/23/17 10:19 (Eliquis) 5 mg BID PO 04/23/17 09:00 04/23/17 20:07 (Lipitor) 80 mg HS PO 04/23/17 21:00 04/23/17 20:07 (Coreg) 12.5 mg BID PO 04/23/17 09:00 04/23/17 20:07 (Lasix) 20 mg DAILY PO 04/23/17 09:00 04/23/17 10:19 (Prinivil) 10 mg DAILY PO 04/23/17 09:00 04/23/17 10:20 (Aldactone) 25 mg DAILY PO 04/23/17 09:00 04/23/17 10:20 (Claritin) 10 mg DAILY PO 04/23/17 09:15 04/23/17 10:20 (Flu (Quadrivalent) Vaccine Inj) 0.5 ml ONCE ONCE IM 04/24/17 09:00 04/24/17 09:01 Vital Signs / I&O Vital Signs Date Time Temp Pulse Resp B/P (MAP) Pulse Ox O2 Delivery O2 Flow Rate FiO2 04/24/17 05:12 58 04/24/17 03:47 97.9 78 16 124/65 (84) 95 04/24/17 02:58 57 04/24/17 00:03 62 04/23/17 23:02 97.9 66 18 113/56 (75) 95 04/23/17 20:13 62 04/23/17 19:58 97.7 77 18 119/64 (82) 95 04/23/17 16:00 97.9 63 16 119/71 (87) 97 04/23/17 15:04 65 04/23/17 13:33 97.6 58 16 121/80 (94) 96 04/23/17 09:42 97.8 60 16 128/77 (94) 96 Physical Exam GENERAL: Well developed, well nourished. No acute distress. HEENT: Jugular venous pressure is normal. CHEST: Lungs clear to auscultation bilaterally. Unlabored respiratory effort. CARDIAC: Regular rate and rhythm without S3, S4, or murmur. ABDOMEN: Soft, nontender, no hepatosplenomegaly. Bowel sounds present. EXTREMITIES: No clubbing, cyanosis, or edema. Laboratory Laboratory Tests Test 04/24/17 07:10 Imaging Last [address] 04/22/17 1731 Signed Impressions: Service Date/Time: Saturday, April 22, 2017 18:11 - CONCLUSION: Normal examination. Catalino Nicholas MD Chest X-Ray 04/22/17 1648 Signed Impressions: Service Date/Time: Saturday, April 22, 2017 17:05 - CONCLUSION: No acute disease. Catalino Nicholas MD Assessment and Plan Problem List: (1) Atypical chest pain ICD Codes: R07.89 - Other chest pain Plan: different from prior cardiac pain, pt not sure if assaociated with RVR =>nuc stress given his hx CAD ==reasonable for d/c if not ischemic (2) Atrial fibrillation ICD Codes: I48.91 - Atrial fibrillation Status: Chronic Plan: 76 y/o M admitted with complaints of palpitations and atypical chest pain , found to be in Afib with RVR. Afib now controlled. -NSR today, brief <5 sec MAT overnight, -change coreg to metoprolol for better rate control given breakthrough on coreg and relative susan -on eliquis (3) NSVT (nonsustained ventricular tachycardia) ICD Codes: I47.2 - Ventricular tachycardia Status: Acute Plan: NSVT vs AF with aberrancy which is felt more likely as it is quite irregular -check babak nuc (unrevascularized OM 2016) (4) HTN (hypertension) ICD Codes: I10 - Essential (primary) hypertension Status: Chronic (5) Ischemic cardiomyopathy ICD Codes: I25.5 - Ischemic cardiomyopathy Status: Chronic Ruby Fowler MD Apr 24, 2017 07:43
[2017-04-24 08:13] LABS: BICARBONATE 26.7 MEQ/L (21.0-32.0); POTASSIUM 3.9 MEQ/L (3.5-5.1)
[2017-04-24] MEDS ORDERED: METOPROLOL SUCCINATE 50 MG EXTENDED RELEASE TAB PO SCH (09:00)
[2017-04-24] MEDS ORDERED: INFLUENZA VIRUS VACCINE (QUADRIVALENT) 0.5 ML SYR IM ONE (09:00)
--- NOTE | 2017-04-24 09:47 | HHI.PR ---
Subjective Remarks Follow up atypical chest pain, CAD and arrhythmia. Patient seen and examined, lying in bed comfortably. Denies any new acute complaints overnight. Denies any further chest pain or palpitations. There is report that patient had a run of 5 beats of VT, patient was not even aware and asymptomatic. Denies any recent fever, chills, cough, headache. Nuclear stress test planned for today. Objective Vitals Vital Signs Date Time Temp Pulse Resp B/P (MAP) Pulse Ox O2 Delivery O2 Flow Rate FiO2 04/24/17 07:40 97.6 68 20 110/59 (76) 95 04/24/17 07:30 95 21 04/24/17 05:12 58 04/24/17 03:47 97.9 78 16 124/65 (84) 95 04/24/17 02:58 57 04/24/17 00:03 62 04/23/17 23:02 97.9 66 18 113/56 (75) 95 04/23/17 20:13 62 04/23/17 19:58 97.7 77 18 119/64 (82) 95 04/23/17 16:00 97.9 63 16 119/71 (87) 97 04/23/17 15:04 65 04/23/17 13:33 97.6 58 16 121/80 (94) 96 Result Diagram: 04/22/17 1710 04/24/17 0710 Imaging Last Impressions Head CT 04/22/17 1731 Signed Impressions: Service Date/Time: Saturday, April 22, 2017 18:11 - CONCLUSION: Normal examination. Catalino Nicholas MD Chest X-Ray 04/22/17 1648 Signed Impressions: Service Date/Time: Saturday, April 22, 2017 17:05 - CONCLUSION: No acute disease. Catalino Nicholas MD Objective Remarks GENERAL: This is a well-nourished, well-developed patient, in no apparent distress. SKIN: No rashes, ecchymoses or lesions. Warm and dry. HEENT: Atraumatic. Normocephalic. Pupils equal round and reactive. Extraocular motions intact. No scleral icterus. No injection or drainage. Nose without bleeding. Airway patent. NECK: Trachea midline. No JVD or lymphadenopathy. Supple. CARDIOVASCULAR: Regular rate and rhythm without murmurs, gallops, or rubs. RESPIRATORY: Clear to auscultation. Breath sounds equal bilaterally. No wheezes , rales, or rhonchi. GASTROINTESTINAL: Abdomen soft, non-tender, nondistended. No guarding. MUSCULOSKELETAL: Extremities without clubbing, cyanosis, or edema. No joint tenderness, effusion, or edema noted. NEUROLOGICAL: Awake and alert. Cranial nerves II through XII intact. Motor and sensory grossly within normal limits. Five out of 5 muscle strength in all muscle groups. Normal speech. A/P Problem List: (1) HTN (hypertension) ICD Code: I10 - Essential (primary) hypertension Status: Chronic (2) Atrial fibrillation ICD Code: I48.91 - Atrial fibrillation Status: Chronic Assessment and Plan Mr. Chacko is a 76-year-old male patient with a known medical history of CAD with multiple stents, atrial fibrillation who presented to the ED with complaints of chest tightness and feelings of irregular heartbeat. This has reportedly been happening for over 3 months but this presentation was associated with chest tightness, dizziness and lethargy. Patient given Cardizem a total of 30 mg IV in ED. Atypical chest pain suspect secondary to arrhythmia History of CAD with multiple stent placement History of atrial fibrillation on Eliquis Hyperlipidemia, chronic Systolic congestive heart failure Nonsustained VTACH Hypertension, chronic Ischemic cardiomyopathy - EKG reviewed showing paroxysmal arrhythmia with occasional bigeminy, couplets, PVCs and nonsustained SVT. Dr. Fowler consulted and has seen patient, plan for nuclear stress test today. Will dc today if no ischemia. Follow. - Serial troponins flat. EKGs reviewed. Continue to monitor on continuous telemetry. Reportedly had a 5 beat run of VT overnight, patient unaware and completely asymptomatic. Dr. Sadler has switched coreg to Metoprolol for better rate control. Monitor BP and vitals. - Last ECHO in EMR 01/2016 reviewed showing EF 35%. - Monitor BP closely. Continue Eliquis and atorvastatin. Continue furosemide , spirolactone and lisinopril. DVT Prophylaxis: SCDs/Eliquis 1400: Performed nuclear stress test, results showing no signs of ischemia. Will DC patient and order for follow up with Dr. Fowler in 2 weeks. Patient doing well, asymptomatic. Follow up with PCP in 2-3 days. Problem Qualifiers (1) Atrial fibrillation: Qualified Codes: I48.91 - Unspecified atrial fibrillation Jose D,Eileen [employer] PLANNING MANAGER Apr 24, 2017 09:47
[2017-04-24] MEDS: SODIUM CHLORIDE 0.9% FLUSH 10 ML FLUSH IV FLUSH SCH (10:48)
[2017-04-24] MEDS: SPIRONOLACTONE 25 MG TAB PO SCH (10:48)
[2017-04-24] MEDS: LISINOPRIL 10 MG TAB PO SCH (10:49)
[2017-04-24] MEDS: FUROSEMIDE 20 MG TAB PO SCH (10:49)
[2017-04-24] MEDS: APIXABAN 5 MG TABLET PO SCH (10:49)
[2017-04-24] MEDS: ASPIRIN 325 MG TAB PO SCH (10:49)
[2017-04-24] MEDS: LORATADINE 10 MG TAB PO SCH (10:49)
--- NOTE | 2017-04-24 13:33 | RADRPT ---
EXAM DATE/TIME: 04/24/2017 11:38 [facility] COMPARISON: No previous studies available for comparison. INDICATIONS : Chest pain with dyspnea and dizziness. Coronary artery disease. Atrial fibrillation. DOSE: 25.4 mCi Tc99m Myoview at stress. 8.5 mCi Tc99m Myoview at rest. 0.4 mg Lexiscan STRESS SYMPTOMS: Stomach cramps. EJECTION FRACTION: 47% MEDICAL HISTORY : Myocardial infarction. Hypercholesterolemia. Congestive heart failure. Atrial flutter. Stroke. Hypert ension. SURGICAL HISTORY : Coronary artery stent. Total knee replacement, right. Right hip replacement. Cardiac ablation. ENCOUNTER: Initial ACUITY: 1 month PAIN SCALE: 7/10 LOCATION: chest TECHNIQUE: The patient underwent pharmacologic stress with infusion of prescribed dose. Continuous ECG tracing was monitored during stress. Gated SPECT imaging was performed after stress and conventional SPECT i maging was performed at rest. The examination was performed on a SPECT/CT scanner, both attenuation and non-corrected datasets were reviewed. FINDINGS: DISTRIBUTION: There is enlarged fixed defect involving the inferior wall. The remaining myocardium is better perfu sed at stress than rest. I see no evidence of stress-induced ischemia. GATED STUDY: Dyskinetic inferior wall with some paradoxical motion. Ejection fraction is 47%. CONCLUSION: Negative for stress-induced ischemia. RISK CATEGORY: Intermediate (1-3% Annual Mortality Rate) Herberth Alvarez MD FACR on April 24, 2017 at 13:29 Board Certified Radiologist. This report was verified electronically.
[2017-04-24] MEDS ORDERED: REGADENOSON INJ 0.4 MG/5 ML SYR ONE (13:34)
[2017-04-24] MEDS ORDERED: METO50TA11 PO (13:58)
== END 2017-04-24 15:31 | disposition home or self-care (01) ==
LOC: NEPE 16:43 → NEDA 19:01 → NEPFCDU 20:45 → INTOOBSV 04-23 15:41 → OBSVTOIN 04-23 15:41 → UNDODISIN 04-24 15:31
PROVIDERS: ADMIT Hospitalist; ATTEND Hospitalist
DX: R07.89 Other chest pain (principal); I48.91 Unspecified atrial fibrillation; I47.2 Ventricular tachycardia; I47.1 Supraventricular tachycardia; I48.92 Unspecified atrial flutter; I49.3 Ventricular premature depolarization; I25.5 Ischemic cardiomyopathy; I50.20 Unspecified systolic (congestive) heart failure; I11.0 Hypertensive heart disease with heart failure; E78.5 Hyperlipidemia, unspecified; I25.10 Atherosclerotic heart disease of native coronary artery without angina pectoris; I25.2 Old myocardial infarction; Z95.5 Presence of coronary angioplasty implant and graft; Z96.641 Presence of right artificial hip joint; Z96.651 Presence of right artificial knee joint; Z79.01 Long term (current) use of anticoagulants
CPT/HCPCS: 70450; 71010; 78452; 80048; 82550; 82552; 83735; 84484; 85025; 85610; 85730; 93005; 93017; 96361; 96374; 96376; 99285; A9502; G0378; J2785; J7030

== ENCOUNTER 2017-08-11 11:57 | Day surgery (SDC) | payer OTHER ==
[2017-08-11] VITALS (7 sets, daily range): BP systolic 121–156; BP diastolic 75–96; PULSE 60–84; RESP 17–22; TEMP 97.9–98.9; O2SAT 97–98
[~2017-08-11] VITALS: Ht 177.8 cm; Wt 72.2 kg
[~2017-08-11 11:57] MED LIST changes: -ATOR1TAB18 PO; -ATOR20TA15 PO; +ATOR80TA45 PO; -BRIL90TA PO; -CARV12.52 PO; -CIPR-9 PO; +METO1TAB9 PO; -PHEN-425 PO
[2017-08-11] MEDS ORDERED: PROPOFOL 200 MG/20 ML AMP OTHER ONE (11:58)
[2017-08-11] MEDS ORDERED: GABA300C5 PO (13:07)
[2017-08-11] MEDS ORDERED: AMBI6.25 PO (13:07)
[2017-08-11] MEDS ORDERED: ceFAZolin 2 GM PREMIX 50 ML IV SCH (13:15)
[2017-08-11] MEDS ORDERED: SODIUM CHLORID 0.9% 500 ML IV PRN (13:15)
[2017-08-11] MEDS ORDERED: VANCOMYCIN 1000 MG/NS 250 ML IV SCH ×2 (13:15)
[2017-08-11] MEDS ORDERED: LACTATED RINGER'S 1000 ML IV PRN (13:15)
[2017-08-11] MEDS ORDERED: MUPIROCIN 2% OINT 1 APPLIC/GM SYR NASAL SCH (13:15)
[2017-08-11] MEDS ORDERED: LORazepam 1 MG TAB SL SCH (13:15)
[2017-08-11] MEDS ORDERED: NS 1000 ML IV SCH (13:30)
[2017-08-11 13:54] LABS: AUTOMATED NEUTROPHIL # 1.9 TH/MM3 (1.8-7.7); BASOPHIL % 0.7 % (0.0-2.0); EOSINOPHIL # 0.1 TH/MM3 (0-0.4); EOSINOPHIL % 2.8 % (0.0-4.0); HEMATOCRIT 38.5 % (39.0-51.0); HEMOGLOBIN 12.9 GM/DL (13.0-17.0); LYMPH % 44.5 % (9.0-44.0); MEAN CELL VOLUME 95.3 FL (80.0-100.0); MEAN CORPUSCULAR HEMOGLOBIN 31.9 PG (27.0-34.0); MEAN CORPUSCULAR HGB CONC 33.5 % (32.0-36.0); MEAN PLATELET VOLUME 8.8 FL (7.0-11.0); MONO % 8.2 % (0.0-8.0); MONOCYTE # 0.4 TH/MM3 (0-0.9); NEUT % 43.8 % (16.0-70.0); PLATELET COUNT 199 TH/MM3 (150-450); RED BLOOD COUNT 4.04 MIL/MM3 (4.50-5.90); WHITE BLOOD COUNT 4.4 TH/MM3 (4.0-11.0)
[2017-08-11 14:00] LABS: PROTHROMBIN TIME - PATIENT 10.6 SEC (9.8-11.6)
[2017-08-11 14:28] LABS: BICARBONATE 27.3 MEQ/L (21.0-32.0); CALCIUM 8.6 MG/DL (8.5-10.1); CREATININE 0.72 MG/DL (0.60-1.30)
[2017-08-11] MEDS ORDERED: LIDOCAINE HCL 2% 50 ML VIAL ONE (15:50)
[2017-08-11] MEDS ORDERED: VANCOMYCIN 500 MG VIAL ONE (15:50)
[2017-08-11] MEDS ORDERED: MIDAZOLAM HCL 2 MG/2 ML VIAL ONE (16:36)
[2017-08-11] MEDS ORDERED: PROPOFOL 200 MG/20 ML AMP ONE ×2 (16:37→16:45)
[2017-08-11] MEDS ORDERED: SODIUM CHLORIDE 0.9% FLUSH 10 ML FLUSH IV FLUSH PRN (16:45)
[2017-08-11] MEDS ORDERED: TEMAZEPAM 15 MG CAP PO PRN (16:45)
[2017-08-11] MEDS ORDERED: ONDANSETRON HCL 4 MG/2 ML VIAL IV PUSH PRN (16:45)
--- NOTE | 2017-08-11 17:00 | CATHPROC ---
Patient Name: SHANTEL KEYES Study #: [id number] Initial MD: Kimber Collazo Date of : 1940 Study Date: 08/11/2017 Cardiac Catheterization Report 08/11/2017 5:03:32 PM Financial #: [id number] 1 of 9 Patient Name: SHANTEL KEYES Study #: [id number] Initial MD: Kimber Collazo Date of : 1940 Study Date: 08/11/2017 Entire Case Report Patient Information Patient Name SHANTEL KEYES Date of 1940 Age 76 years Financial # [id number] Gender M AlternateID Lab Number 6 Room Number DC10 Height (in) 70.0 Height (cm) 177.8 BSA 1.89 Weight (lbs) 158.4 Weight (kg) 72.0 Patient Address/Phone Number Home Address [facility] Home Phone Number [facility] [address] Study Information Study Number Admission Scheduled Start Study Start [id number] Aug 11 2017 11:57AM 08/11/2017 Aug 11 2017 3:51PM [place] [facility] Cardiac Pacer/ICD Admit Source Facility Department Other [facility] - Digital Asset Coordinator Physician and Clinical Staff Initial Kimber Guzman Outside Plant Engineer Maida Jimenez,THAI Other cathlab, cathlab Other Anesthesia, GUZZLER BUILDER Recorder Magali Nieto RN Recorder Jeanine Veliz,RT(R) TECH2 Scrub Latha Francois RCIS Procedures Performed Procedure Lead Insertion 08/11/2017 5:03:32 PM Financial #: [id number] 2 of 9 Patient Name: SHANTEL KEYES Study #: [id number] Initial MD: Kimber Collazo Date of : 1940 Study Date: 08/11/2017 Equipment Time Line Cleaner Description Size Mfg Part Number Used/Scraped DERMABOND, ADHESIVE SKIN [id number] 15:54 CORDIS/PACER * Used GLUE MINI *[id number]-1103 15:54 MEDLINE INDUSTRIES SUTURE, STRIP PLUS 1/2" * Used *[id number] 15:54 MEDLINE PACER COLON, LIMB * 2530 *[id number] Used [id number] 15:54 MEDLINE PACER PACK, PACER CUSTOM * Used *[id number] 16:47 [employer] MEDICAL PACER SAFE SHEATH, FR7, 13CM FR 7 [id number] Used 16:32 Needle Sponge Count 2 22 Used 16:33 Needle Sponge Count 2 2 Used 16:32 Needle Sponge Count 20 200 Used 16:40 Needle Sponge Count 4 4 Used 16:41 Needle Sponge Count 4 4 Used SUTURE, 0 ETHIBOND [CT1] (CX21D), 8pk SUTURE, 2-0 VICRYL [CT1] ([id number]) SUTURE, 2-0 VICRYL [CT1] ([id number]) [id number] 15:54 [employer],WARM AIR CCL * Used *[id number] [facility] PAD, ELECTROSURGICAL 15:54 * [id number] *[id number] Used SURGICAL GROUNDING ORANGE 16:52 VITATRON MEDTRONIC DEFIBRILLATOR, VISIA AF MRI VR VVEVVIR [id number] Used LEAD, SPRINT QUATTRO SECURE [id number] 16:23 VITATRON MEDTRONIC 62CM Used S 62CM *[id number] 6592-2303 15:54 [employer]. / * Used *85294 Equipment Model, Serial, Lot Number and Expiration Data Description Model Number Serial Number Lot Number Expiration Date DEFIBRILLATOR, VISIA AF MRI VR [id number] 10-28-2018 LEAD, SPRINT QUATTRO SECURE S 6935M-62 [id number] 04-30-2019 62CM Insurance Information Insurance Payor Private Health Insurance Third Green Party Third Green Party Number [facility] 08/11/2017 5:03:32 PM Financial #: [id number] 3 of 9 Patient Name: SHANTEL KEYES Study #: [id number] Initial MD: Kimber Collazo Date of : 1940 Study Date: 08/11/2017 History: Current Medications Medication Dosage/Unit Route Frequency Last Date/Time Taken CARVEDILOL ELIQUIS LISINOPRIL Statins (any) History: Allergies Allergy Reaction iohexol Rash morphine pustular rash, itching diatrizoate meglumine Rash naproxen hives metoprolol hives gadoteridol Rash gadodiamide Rash iodixanol Rash gadobenic acid Rash Iodinated Contrast- Oral and IV Hives Dye Opioids - Morphine Analogues Hives NSAIDS (Non-Steroidal Anti- Rash Inflamma codeine Rash ibuprofen Rash History: Risk Factors Family History of Hypertension Dyslipidemia Previous [place] Previous Heart Failure Premature CAD No No No Yes Yes Prior Valve Prior PCI Prior PCIDate Prior CABG Surgery No Yes 01/28/2016 No Cerebrovascular Peripheral Artery Chronic Lung On Dialysis Diabetes Disease Disease Disease No No No No No History: CV Disease Selection Items Known CAD OH 08/11/2017 5:03:32 PM Financial #: [id number] 4 of 9 Patient Name: SHANTEL KEYES Study #: [id number] Initial MD: Kimber Collazo Date of : 1940 Study Date: 08/11/2017 History: Stress Tests Stress or Imaging Studies Performed No History: Arrhythmias Selection Items Atrial fibrillation History: Other Disease Selection Items CAD CHF Labs Hgb (g/dl) Hct (%) RBC (MIL/MM3) WBC (l/cumm) Platelets (thousands) 11.60-17.00 35.00-51.00 4.00-5.90 4.00-11.00 150.00-450.00 12.9 38.5 4 4.4 199 Glucose (mg/dl) BUN (mg/dl) Creatinine (mg/dl) BUN:Creatinine (1:x) 74.00-106.00 7.00-18.00 0.50-1.30 10.00-20.00 92 22 0.7 31.4 Na (meq/l) K (meq/l) Cl (meq/l) CO2 (mmol/L) Ca (mg/dl) 136.00-145.00 3.50-5.10 98.00-107.00 21.00-32.00 8.50-10.10 141 4.5 108 27.3 8.6 PT (sec) PTT (sec) INR (PTT:PT) 9.80-11.60 24.30-30.10 0.90-1.10 10.6 28.6 1 Medication Medication Total Dose (Bolus/Oral) Medication Total Dosage/Unit 2% XYLOCAINE 50 mL Medications (Bolus/Oral) Medication Time Given Dosage/Unit Administered By Reason 2% XYLOCAINE 08/11/2017 4:18:15 PM 50 mL Kimber Collazo 50 mL 2% XYLOCAINE given in lab by Kimber Collazo via Subcutaneous. Ordered by Kimber Collazo. 08/11/2017 5:03:32 PM Financial #: [id number] 5 of 9 Patient Name: SHANTEL KEYES Study #: [id number] Initial MD: Kimber Collazo Date of : 1940 Study Date: 08/11/2017 Medication (Drip) Medication Time Given Dosage/Unit Concentration/Unit Diluent (ml) Solution ANCEF 08/11/2017 3:45:00 PM 1 g 1 g ANCEF given in lab by Maida Jimenez RN via Peripheral IV. Ordered by Kimber Collazo. Reason: As per physicians verbal order. VANCOMYCIN DRIP 08/11/2017 3:45:28 PM 1 g 1 g VANCOMYCIN DRIP given in lab by Maida Jimenez RN via Peripheral IV. Ordered by Kimber Collazo. R flash: As per physicians verbal order. Initial Case Assessment Cardiovascular HR NIBP 72 147/91 Edema Present Skin color Skin None Normal Warm Dry Circulatory - Right Pulses Dorsalis Pedis 1 Scale (0,1,2,3,4,d) Circulatory - Left Pulses Dorsalis Pedis 1 Scale (0,1,2,3,4,d) Circulatory - Lower Extremities Color Lower Right Color Lower Left Normal Normal Neurological State Oriented to time-place- Alert Moves all extremities person Respiration - General Respiration Rate SpO2 (%) (B/min) 16 100 Chronological Log Time Study Chronological Log 15:35:29 Patient arrived via Bed. 15:35:29 Patient Name, D.O.B, / Armband Verified By R.N. 15:35:34 Consent signed by the physician and the patient and verified by the Digital Asset Coordinator staff. 08/11/2017 5:03:32 PM Financial #: [id number] 6 of 9 Patient Name: SHANTEL KEYES Study #: [id number] Initial MD: Kimber Collazo Date of : 1940 Study Date: 08/11/2017 15:35:35 Pre-op and post- op instructions given; patient acknowledges understanding of instructions. 15:35:39 Patient has been NPO for More than 6Hrs. 15:36:39 NO Skin Breakdown-NONE PER PATIENT 15:36:40 Patient Warmer Placed on the Table. 15:40:19 2% CHLORHEXIDINE GLUCONATE WASH AND NASAL SWIPE DONE PRIOR TO PROCEDURE. 1 g ANCEF given in lab by Maida Jimenez RN via Peripheral IV. Ordered by Kimber Collazo. Reaso n: As per physicians 15:45:00 verbal order. 1 g VANCOMYCIN DRIP given in lab by Maida Jimenez RN via Peripheral IV. Ordered by Wally Collazo. Reason: As per 15:45:28 physicians verbal order. 15:51:41 Disposable Defibrillator Pads Placed On Patient. 15:51:42 Xavier Prominences Protected 15:51:45 A # 20 IV was noted in the Antecubital (left). Grade = 0 0.9% nAcL @ kvo. 15:51:47 A # 20 IV was noted in the Forearm (right). Grade = 0 0.9% NaCl @ KVO 15:51:49 History and physical on the chart. Assessment: Initial Case, HR=72 BPM, EBLI=150/91 mmhg, Edema=None, Color=Normal, Skin = Warm, D ry Right Pulses: Shady Ped=1 Left Pulses: Shady Ped=1 15:51:50 Lower Right Extremities: Color=Normal Lower Left Extremities: Color=Normal Neurological: State=Alert, Ox3, GUILLAUME Respiration: Resp=16 B/min, BfE7=380 % 15:52:07 Bovie ground pad applied to: LEFT UPPER THIGH 15:54:52 Left Upper Chest Prepped Times Two. First Sponge And Instrument Count Done by Maida Jimenez RN. 15:55:24 Hypo's: 2, Sponges: 20, Bovie/scratch: 2 Sutures: 12, Blades: 1, Instruments: 26, Syveck Patches: ~SYVECK PATCH~ 15:58:00 A sterile drape was applied after a 3 min waiting period. 16:09:11 paged 16:15:38 MD arrived. Time Out. Correct patient, procedure, procedure equipment, site and side verified with physicia n present. Time 16:17:04 concurred by MD, individual staff and GUZZLER BUILDER. Time Out #2 - Consents verified, patient in correct position, all results are labled and displa yed, safety precautions 16:17:54 taken, antibiotics administered. Time out concurred by MD, individual staff and GUZZLER BUILDER in procedu re 16:17:55 Case Start 16:18:15 50 mL 2% XYLOCAINE given in lab by Kimber Collazo via Subcutaneous. Ordered by Kimber Collazo . 16:19:47 Reference ECG taken 16:20:53 Surgical Incision Made. 16:20:57 A pocket was created at the Shoulder, Lt.. 16:21:34 Vascular access was obtained in the Subclav. Vein (Lft. 16:21:54 A SAFE SHEATH, FR7, 13CM FR 7 was advanced into the Subclav. Vein (Lft using the Modified S eldinger technique. 16:25:30 A LEAD, SPRINT QUATTRO SECURE S 62CM 62CM was inserted and positioned in the RV. 16:25:41 Lead placement verified under fluoroscopy 08/11/2017 5:03:32 PM Financial #: [id number] 7 of 9 Patient Name: SHANTEL KEYES Study #: [id number] Initial MD: Kimber Collazo Date of : 1940 Study Date: 08/11/2017 16:26:27 The RV lead was sutured to the fascia. 16::34 Pocket flushed with antibiotic solution 16:27:38 A DEFIBRILLATOR, VISIA AF MRI VR VVEVVIR was connected and placed in the pocket. Second Sponge And Instrument Count Done by Maida Jimenez RN. 16:27:54 Hypo's: 2, Sponges: 20, Bovie/scratch: 2 Sutures: 12, Blades: 1, Instruments: ~INSTRU~, Syveck Patches: ~SYVECK PATCH~ 16:28:21 The pocket is being closed. 16:29:00 A two Joul DFT was performed. 16:29:15 The DFT was Success at 20 Joules, 61 Ohms lead impedance and 4 ms charge time. 16:36:50 Implant Procedure was performed. 16:36:56 A ICD Implant . (Single) 16:37:18 DOCU called. Spoke to Roland 16:37:59 Bedside Report will be given. 16:40:00 The pocket was closed. 16:55:09 Steri-strips and a sterile dressing applied to site. Final Sponge And Instrument Count Done by Latha Francois RCIS. 17:01:27 Hypo's: 2, Sponges: 20, Bovie/scratch: 2 Sutures: 12, Blades: 1, Instruments: 26, Syveck Patches: ~SYVECK PATCH~ Verified by SH 17:02:06 Case End 17:02:33 Cine recording checked. 17:02:35 No case complications noted. 17:05:19 Patient moved to stretcher 17:06:33 Defibrillator and ground pads removed. Skin intact. 17:06:58 A sling was placed on the affected arm. 17:07:54 Implantable Device card placed in patient's chart. 17:08:00 Transported via bed to DOCU in stable condition with RN and tech accompanying pt. End Study - Contrast Media Used In Study Contrast Total Opened (mL) Total Used (mL) Total Wasted (mL) Unspecified 0 0 0 End Study - Maximum Contrast Load Max Contrast Load (mL) 514.3 08/11/2017 5:03:32 PM Financial #: [id number] 8 of 9 Patient Name: SHANTEL KEYES Study #: [id number] Initial MD: Kimber Collazo Date of : 1940 Study Date: 08/11/2017 End Study - Radiation Exposure Fluoro Time (minutes) 0.9 End Study - Patient Disposition Complications Transferred To Telemetry Bed 08/11/2017 5:03:32 PM Financial #: [id number] 9 of 9
[2017-08-11] MEDS ORDERED: DO NOT ADM ANY ANTICOAGULANT DRUGS PRN (17:12)
[2017-08-11] MEDS ORDERED: ZOLPIDEM TARTRATE 5 MG TAB PO PRN (17:45)
[2017-08-11] MEDS ORDERED: traMADol HCL 50 MG TAB PO PRN ×2 (18:00→19:45)
[2017-08-11] MEDS: traMADol HCL 50 MG TAB PO PRN (18:30)
--- NOTE | 2017-08-11 18:52 | RADRPT ---
EXAM DATE/TIME: 08/11/2017 18:35 [place] COMPARISON: CHEST SINGLE AP, April 22, 2017, 17:05. INDICATIONS : Evaluate for pneumothorax. Post ICD. MEDICAL HISTORY : Cardiovascular disease. Hypertension SURGICAL HISTORY : Stents. ENCOUNTER: Initial ACUITY: 1 day PAIN SCORE: 0/10 LOCATION: Bilateral chest FINDINGS: A single view of the chest demonstrates subsegmental basilar airspace disease. Pacer lead overlies ri ght ventricle. Tortuous aorta. No pneumothorax. CONCLUSION: 1. Minimal basilar airspace disease. Pacer lead overlies right ventricle. No pneumothorax. Ander Paredes MD on August 11, 2017 at 18:49 Board Certified Radiologist. This report was verified electronically.
[2017-08-11] MEDS ORDERED: ATORVASTATIN 80 MG TAB PO SCH (21:00)
[2017-08-11] MEDS ORDERED: GABAPENTIN 300 MG CAP PO SCH (21:00)
[2017-08-11] MEDS: SODIUM CHLORIDE 0.9% FLUSH 10 ML FLUSH IV FLUSH SCH (21:53)
[2017-08-11] MEDS: APIXABAN 5 MG TABLET PO SCH (21:53)
[2017-08-11] MEDS: ceFAZolin 2 GM PREMIX 50 ML IV SCH (23:54)
[2017-08-12] VITALS (12 sets, daily range): BP systolic 112–116; BP diastolic 70–72; PULSE 62–72; RESP 18; O2SAT 95
[2017-08-12] MEDS: traMADol HCL 50 MG TAB PO PRN ×3 (00:03→08:45)
[2017-08-12] MEDS: ceFAZolin 2 GM PREMIX 50 ML IV SCH (08:45)
[2017-08-12] MEDS: SODIUM CHLORIDE 0.9% FLUSH 10 ML FLUSH IV FLUSH SCH (08:46)
[2017-08-12] MEDS: APIXABAN 5 MG TABLET PO SCH (08:46)
[2017-08-12] MEDS ORDERED: SPIRONOLACTONE 25 MG TAB PO SCH (09:00)
[2017-08-12] MEDS ORDERED: LISINOPRIL 10 MG TAB PO SCH (09:00)
[2017-08-12] MEDS ORDERED: LORATADINE 10 MG TAB PO SCH (09:00)
[2017-08-12] MEDS ORDERED: FUROSEMIDE 20 MG TAB PO SCH (09:00)
[2017-08-12] MEDS ORDERED: METOPROLOL SUCCINATE 50 MG EXTENDED RELEASE TAB PO SCH (09:00)
[2017-08-12] MEDS ORDERED: INFLUENZA VIRUS VACCINE (QUADRIVALENT) 0.5 ML SYR IM ONE (10:00)
[2017-08-12] MEDS ORDERED: PNEUMOCOCCAL POLYVALENT INJ 25 MCG/0.5 ML SYR IM ONE (10:00)
--- NOTE | 2017-08-12 12:10 | PD.CARD.PN ---
Subjective Subjective Remarks No events overnight No complaints Objective Medications Current Medications Medications (Trade) Dose Ordered Sig/Desire Route Start Time Stop Time Status Last Admin Cefazolin Sodium/ Dextrose 50 ml @ 100 mls/hr Q8H IV 08/12/17 00:00 08/12/17 16:29 08/12/17 08:45 (Restoril) 15 mg HS PRN PO 08/11/17 16:45 (Zofran Inj) 4 mg Q4H PRN IV PUSH 08/11/17 16:45 (Ultram) 100 mg Q4H PRN PO 08/11/17 18:00 08/12/17 08:45 (NS Flush) 2 ml BID IV FLUSH 08/11/17 21:00 08/12/17 08:46 (NS Flush) 2 ml UNSCH PRN IV FLUSH 08/11/17 16:45 (Eliquis) 5 mg BID PO 08/11/17 21:00 08/12/17 08:46 (Lipitor) 80 mg HS PO 08/11/17 21:00 08/11/17 21:54 (Lasix) 20 mg DAILY PO 08/12/17 09:00 08/12/17 08:46 (Neurontin) 300 mg HS PO 08/11/17 21:00 08/11/17 21:54 (Prinivil) 10 mg DAILY PO 08/12/17 09:00 08/12/17 08:46 (Toprol Xl) 50 mg DAILY PO 08/12/17 09:00 08/12/17 08:46 (Aldactone) 25 mg DAILY PO 08/12/17 09:00 08/12/17 08:46 (Claritin) 10 mg DAILY PO 08/12/17 09:00 08/12/17 08:46 (Ambien) 5 mg HS PRN PO 08/11/17 17:45 Miscellaneous Information ALL NURSING DEPARTME... UNSCH PRN .XX 08/11/17 17:12 08/12/17 17:11 (Ultram) 50 mg Q4H PRN PO 08/11/17 19:45 Vital Signs / I&O Vital Signs Date Time Temp Pulse Resp B/P (MAP) Pulse Ox O2 Delivery O2 Flow Rate FiO2 08/12/17 09:45 18 08/12/17 08:00 62 08/12/17 06:00 70 08/12/17 05:00 66 08/12/17 04:00 70 08/12/17 04:00 69 18 114/71 (85) 95 08/12/17 03:00 69 08/12/17 02:00 68 08/12/17 01:00 68 08/12/17 00:00 72 18 112/70 (84) 95 08/12/17 00:00 68 08/11/17 23:00 75 08/11/17 22:00 76 08/11/17 21:00 80 08/11/17 20:00 98.9 60 18 121/76 (91) 98 08/11/17 20:00 80 08/11/17 19:00 79 08/11/17 18:30 97.9 84 22 156/96 (116) 08/11/17 12:59 68 17 123/75 (91) 97 I/O 08/11/17 08/11/17 08/11/17 08/12/17 08/12/17 08/12/17 07:00 15:00 23:00 07:00 15:00 23:00 Intake Total 100 ml 450 ml Output Total 500 ml Balance 100 ml -50 ml Intake Oral 400 ml IV Total 100 ml 50 ml Output Urine Total 500 ml Physical Exam GENERAL: NAD, AAOx3 SKIN: Warm and dry. HEAD: Atraumatic. Normocephalic. EYES: Pupils equal and round. No scleral icterus. No injection or drainage. ENT: No nasal bleeding or discharge. Mucous membranes pink and moist. NECK: Trachea midline. No JVD. CARDIOVASCULAR: Regular rate and rhythm. Left chest wall with clean incision RESPIRATORY: No accessory muscle use. Clear to auscultation. Breath sounds equal bilaterally. GASTROINTESTINAL: Abdomen soft, non-tender, nondistended. Hepatic and splenic margins not palpable. MUSCULOSKELETAL: Extremities without clubbing, cyanosis, or edema. No obvious deformities. NEUROLOGICAL: Awake and alert. No obvious cranial nerve deficits. Motor grossly within normal limits. Five out of 5 muscle strength in the arms and legs. Normal speech. PSYCHIATRIC: Appropriate mood and affect; insight and judgment normal. Laboratory Laboratory Tests Test 08/11/17 12:35 White Blood Count 4.4 TH/MM3 Red Blood Count 4.04 MIL/MM3 Hemoglobin 12.9 GM/DL Hematocrit 38.5 % Mean Corpuscular Volume 95.3 FL Mean Corpuscular Hemoglobin 31.9 PG Mean Corpuscular Hemoglobin Concent 33.5 % Red Cell Distribution Width 14.0 % Platelet Count 199 TH/MM3 Mean Platelet Volume 8.8 FL Neutrophils (%) (Auto) 43.8 % Lymphocytes (%) (Auto) 44.5 % Monocytes (%) (Auto) 8.2 % Eosinophils (%) (Auto) 2.8 % Basophils (%) (Auto) 0.7 % Neutrophils # (Auto) 1.9 TH/MM3 Lymphocytes # (Auto) 2.0 TH/MM3 Monocytes # (Auto) 0.4 TH/MM3 Eosinophils # (Auto) 0.1 TH/MM3 Basophils # (Auto) 0.0 TH/MM3 CBC Comment DIFF FINAL Differential Comment Prothrombin Time 10.6 SEC Prothromb Time International Ratio 1.0 RATIO Activated Partial Thromboplast Time 28.6 SEC Blood Urea Nitrogen 22 MG/DL Creatinine 0.72 MG/DL Random Glucose 92 MG/DL Calcium Level 8.6 MG/DL Sodium Level 141 MEQ/L Potassium Level 4.5 MEQ/L Chloride Level 108 MEQ/L Carbon Dioxide Level 27.3 MEQ/L Anion Gap 6 MEQ/L Estimat Glomerular Filtration Rate 107 ML/MIN Assessment and Plan Problem List: (1) ICD (implantable cardioverter-defibrillator) in place ICD Codes: Z95.810 - Presence of automatic (implantable) cardiac defibrillator (2) NSVT (nonsustained ventricular tachycardia) ICD Codes: I47.2 - Ventricular tachycardia Status: Acute (3) Atypical chest pain ICD Codes: R07.89 - Other chest pain (4) Ischemic cardiomyopathy ICD Codes: I25.5 - Ischemic cardiomyopathy Status: Chronic Assessment and Plan 1) Medtronic ICD placement No complaints Interrogation with no problems 2) Cardiovascularly stable for discharge 3) Keflex for [address] Collazo 4) Follow up in 1 week for wound check Zheng Tracy DO Aug 12, 2017 12:10
[2017-08-12] MEDS ORDERED: CEPH-460 PO (12:17)
--- NOTE | 2017-08-12 13:39 | EKG ---
Date Performed: 08/11/2017 Time Performed: 13:24:36 PTAGE: 76 years EKG: Sinus rhythm . Possible inferior infarct - age undetermined Since the prior tracing, there has been no significant change Abnormal ECG PREVIOUS TRACING : 04/22/2017 23.22 DOCTOR: Brant Suárez Interpretating Date/Time 08/12/2017 13:37:35
--- NOTE | 2017-08-12 13:39 | EKG ---
Date Performed: 08/12/2017 Time Performed: 04:15:58 PTAGE: 76 years EKG: Sinus rhythm with PVC(s) Possible inferior infarct - age undetermined Since the prior tracing, there has been no significant change Abnormal ECG PREVIOUS TRACING : 08/11/2017 13.24 DOCTOR: Brant Suárez Interpretating Date/Time 08/12/2017 13:37:24
--- NOTE | 2017-08-13 20:00 | PD.CARD ---
SINGLE CHAMBER DEFIB IMPLANT PROCEDURE DATE: Aug 11, 2017 Prevention: Primary Single Chamber Defib Implant PROCEDURE: Single chamber defibrillator implantation and device testing. INDICATIONS: Mr. Chacko is a 76 -year-old male with hx of congestive heart failure, ejection fraction 25% , coronary artery disease, referred for defibrillator implantation for sudden prevention prevention. The risks, the nature and the benefit of the procedure are clearly stated to him . Risks include pneumothorax, cardiac perforation, stroke and even . He understood and agreed to proceed. PROCEDURE: After written, informed consent was obtained, the patient was brought to the EP Lab where he was prepped and draped in the sterile fashion. Conscious sedation was initiated and maintained throughout the procedure by anesthesiologist. Once sedation was verified, the left infraclavicular area was anesthetized with 2% Xylocaine. Using modified Seldinger technique, the left subclavian vein was cannulated on one occasion and one guide wire was advanced. Then, using #11 blade scalpel, a 3-cm incision was made two fingerbreadths below left clavicle. This incision was then taken down to the deep fascial layer using Bovie cautery and blunt dissection. Into the inferomedial direction, a device pocket was dissected, then the wire was dissected into the pocket. A 2-0 Vicryl suture was placed around the wires to prevent bleeding. At this point, over the wire, the 9- Indian dilator and introducer was advanced. As dilator and wire were removed, an active fixation right ventricular pacing, sensing and defibrillatory lead was advanced. After adequate pacing and sensing thresholds were obtained, the lead was secured in the pocket with #2 Ethibond suture. At that point, the pocket was copiously irrigated with antibiotic solution. The leads were connected to the generator and placed into the pocket. I did proceed with NIPS. Initial induction consisted of T-wave shock which induced ventricular fibrillation which was adequately detected and treated by the ICD generator, delivering a 20-joule defibrillatory shock converting the patient back into sinus rhythm. Shocking impedance was 64 ohms, charge time 5 seconds. At that point NIPS was complete. I did proceed with wound closure. The deep fascial layer was approximated with 2-0 Vicryl suture in a continuous fashion. The subcutaneous layer was approximated with 2-0 Vicryl suture in a continuous fashion. The subcuticular layer was approximated with 2-0 Vicryl suture in a continuous fashion. Dermabond adhesive was applied to the wound, followed by a sterile pressure dressing. There was no complication. The patient tolerated procedure. Blood loss minimal. 1. Implanted Hardware: The implanted defibrillator generator is a Medtronic, model number [id number], serial number . The right ventricular pacing, sensing and defibrillatory lead is a Medtronic model number 6935-62, serial number [id number]. 2. Thresholds: The right ventricular pacing threshold in the bipolar mode was 1.0 volts at 0.4 milliseconds, lead impedance 495 ohms and R-wave at 9.3 mV. The right ventricular defibrillatory threshold less than 20 joules shocking, impedance 64 ohms, charge time 5.0 seconds. 3. Settings: The device set in VVI 40 defibrillatory portion for two zones, one zone for ventricular tachycardia between 165 and 240 beats per minute. Initial therapy consists of one burst of ATP, one ramp, 81%, 10 pulse, 10 millisecond decremental, followed by 20, then 25 and all subsequent shocks at 30 joules defibrillatory shock, the second zone for ventricular fibrillation above 240 beats per minute, first therapy at 25 and all subsequent shocks at 35 joules defibrillatory shock. CONCLUSIONS: Successful defibrillator implantation and device testing. COMMENT AND RECOMMENDATIONS: The patient will be transferred to the telemetry unit, will be observed and when stable can be discharged home. Kimber Collazo MD Aug 13, 2017 20:00
== END 2017-08-12 13:25 | disposition home or self-care (01) ==
LOC: HDOC 11:57 → HDIC 11:58 → HCIS 18:27 → HDOC 08-12 13:25
PROVIDERS: ATTEND Internal Medicine Interventional Cardiology
DX: I11.0 Hypertensive heart disease with heart failure (principal); I50.9 Heart failure, unspecified; I25.10 Atherosclerotic heart disease of native coronary artery without angina pectoris; R94.31 Abnormal electrocardiogram [ECG] [EKG]; F41.9 Anxiety disorder, unspecified; I35.1 Nonrheumatic aortic (valve) insufficiency; I48.91 Unspecified atrial fibrillation; E83.119 Hemochromatosis, unspecified; E78.5 Hyperlipidemia, unspecified; I47.1 Supraventricular tachycardia; R06.00 Dyspnea, unspecified; R53.83 Other fatigue; I25.2 Old myocardial infarction; Z79.01 Long term (current) use of anticoagulants; Z23 Encounter for immunization
CPT/HCPCS: 00534; 33249; 71045; 80048; 85025; 85610; 85730; 86850; 86900; 86901; 93005; C1722; C1777; G0008; J0690; J2250; J3010; J3370; J7050; Q2038; 90471; 90686

== ENCOUNTER 2018-04-17 21:44 | Observation (INO) ==
--- NOTE | 2018-04-17 23:00 | ED ---
HPI General Chief complaint: Chest Pain Stated complaint: chest pain Time Seen by Provider: 04/17/18 22:56 Source: patient Limitations: no limitations History of Present Illness HPI narrative: The patient is a 77 year old male who presents to the [facility] emergency department with a history of shortness of breath and fatigue that began this morning. He also has chest tightness across the top of his chest and upper back that began 2-3 hours ago. He denies any alleviating or aggravating reports the shortness of breath however is worse with lying down. He reports that he does have a history of congestive heart failure. He reports that he was told to only take his diuretic as needed in March. He denies having any lower extremity edema, calf pain, or erythema. He denies having any prior history of DVT or pulmonary embolism. He is on Eliquis and takes this regularly. He reports that he did take earlier today. He is on this medication for atrial fibrillation. The patient additionally reports that he has a history of coronary artery disease with myocardial infarction in the past. He reports that he has had multiple stents placed. He has had nausea today without vomiting. His last stress test was done 2-3 weeks ago, however he does not know the results. 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 Fowler. On review of systems otherwise, the patient denies having any known recent fevers, cough, neck pain, abdominal pain, diarrhea, urinary symptoms, or focal neurologic symptoms. He does report having some nasal congestion that he thought was related to allergies. Related Data Home Medications Medication Instructions Recorded Confirmed apixaban [Eliquis] 5 mg PO BID 04/17/18 04/17/18 atorvastatin 80 mg PO DAILY 04/17/18 04/17/18 furosemide [Lasix] 20 mg PO DAILY 04/17/18 04/17/18 gabapentin 300 mg PO QPM 04/17/18 04/17/18 lisinopril 10 mg PO DAILY 04/17/18 04/17/18 metoprolol succinate 50 mg PO DAILY 04/17/18 04/17/18 spironolactone 25 mg PO DAILY 04/17/18 04/17/18 Allergies Allergy/AdvReac Type Severity Reaction Status Date / Time codeine Allergy Severe Rash Verified 04/17/18 21:51 ibuprofen Allergy Severe Rash Verified 04/17/18 21:51 Iodinated Contrast- Oral and Allergy Severe Hives Verified 04/17/18 21:51 IV Dye NSAIDS (Non-Steroidal Allergy Severe Rash Verified 04/17/18 21:51 Anti-Inflamma Opioids - Morphine Analogues Allergy Severe Hives Verified 04/17/18 21:51 diatrizoate meglumine Allergy Intermediate Rash Verified 04/17/18 21:51 gadobenic acid Allergy Intermediate Rash Verified 04/17/18 21:51 gadodiamide Allergy Intermediate Rash Verified 04/17/18 21:51 gadoteridol Allergy Intermediate Rash Verified 04/17/18 21:51 iodixanol Allergy Intermediate Rash Verified 04/17/18 21:51 iohexol Allergy Intermediate Rash Verified 08/11/17 13:15 morphine Allergy Intermediate pustular Verified 08/11/17 13:15 rash, itching naproxen Allergy Intermediate hives Verified 08/11/17 13:15 Review of Systems ROS: all other systems reviewed are negative (except that mentioned in the HPI. ) PMFSH Social History Social History Substance History: No History of Abuse Second Hand Smoke Exposure: No Smoking Status: Never smoker Smoking End Date: quit 20 plus years ago. How Often Do You Have a Drink Containing Alcohol: Monthly or less Recent Travel in [facility] within the Last 8 Weeks: No Recent Out of Country Travel within the Last 8 Weeks: No Exam Const General: cooperative, no acute distress and well developed Nutritional Appearance: well nourished Orientation: alert, awake and oriented x3 HENMT Head: normocephalic and atraumatic Nose: no nasal discharge and no epistaxis Mouth: moist mucous membranes Throat: posterior oropharynx normal and uvula midline Eyes Sclera: normal sclerae Pupils: PERRL EOM: EOM intact bilaterally Neck Neck: no meningeal signs, trachea midline and no JVD Resp Effort & Inspection: no use of accessory muscles Auscultation: clear to auscultation bilaterally Cardio Rate: bradycardic (Sinus bradycardia in the 50s, no pulse deficits to the extremities on simultaneous auscultation and palpation of his radial artery) Rhythm: regular rhythm Heart Sounds: no gallops, no murmurs and no rubs GI Inspection: non-distended Palpation: soft, no hepatosplenomegaly and nontender Auscultation: normal bowel sounds Back/Spine/Pelvis Back: no CVA tenderness Skin General: dry skin (warm) Neuro General: alert, awake, oriented x3 and other Speech: speech normal Motor: no movement abnormalities noted Extrem General: normal to inspection (2+ pulses in all 4 extremities.), no calf tenderness, no clubbing, no cyanosis and no edema Psych Mood: congruent mood Affect: normal affect Judgment: judgment good Course Initial Documented Vital Signs Temperature 98.0 F 04/17/18 21:47 Pulse Rate 66 04/17/18 21:47 Respiratory Rate 18 04/17/18 21:47 Blood Pressure 169/96 H 04/17/18 21:47 Pulse Oximetry 98 04/17/18 21:47 Last Documented Vital Signs Temperature 98.7 F 04/18/18 08:00 Pulse Rate 53 L 04/18/18 08:00 Respiratory Rate 18 04/18/18 08:00 Blood Pressure 124/66 04/18/18 08:00 Pulse Oximetry 94 L 04/18/18 08:00 Medical Decision Making MDM Narrative Medical decision making narrative: During the course of the patient's emergency department visit, the patient's history, examination, and differential diagnosis were reviewed with the patient. The patient was placed on a personnel monitor with oximetry and frequent blood pressure monitoring. The patient had IV access obtained and blood work sent for analysis. A diagnostic evaluation was started regarding the patient's chest tightness, shortness of breath, fatigue. The patient was initially provided nitroglycerin sublingual x1, nitroglycerin 1 inch to the chest wall. Patient is on Eliquis, therefore at this point aspirin was held. The patient's diagnostic studies are remarkable for a normal white count at 6.1 , hemoglobin 12.7, platelets 192 with 8.1 monocytes, PT 10.9, INR 1.1, PTT 32.2. Chemistry is remarkable for chloride of 108, BUN 22, GFR 79, calcium 8.4 , magnesium 1.9, AST is elevated at 105, ALT 110. Initial set of cardiac enzymes are negative, BNP is elevated at 491, lipase 85. The patient's chest x- ray showed cardiomegaly with positive fluid balance mild patchy airspace disease in the right lower lung zone which could reflect atelectasis. Given the patient's symptoms and elevated BNP the patient was given a dose of Lasix for diuresis. The patient was agreeable with the plan to proceed with admission to the chest pain center for rule out serial cardiac enzyme protocol. The patient reported feeling improved. The patient's results were discussed with the patient, including the plan of care. I explained that further testing and/ or monitoring is indicated based on the patient's history, examination, and/ or laboratory findings. Therefore, I recommended admission for additional evaluation. The patient expressed understanding and was agreeable with this plan. The patient was admitted to the hospital in stable condition and sent to a bed under the care of the [facility]. Medical Screen Exam Complete: Yes Emergency Medical Condition: Yes Differential Diagnosis Differential Diagnosis: Acute coronary syndrome, versus congestive heart failure exacerbation, versus pneumonia, versus viral syndrome, versus electrolyte derangements Medical Records Medical records reviewed: Yes I reviewed the patient's medical records. Lab Data Lab results reviewed: Yes I reviewed the patient's lab results. Result diagrams: 04/17/18 23:16 04/17/18 23:16 Lab Results 04/17/18 04/17/18 04/17/18 Range/Units 23:16 23:16 23:16 WBC 6.1 (4.0-11.0) th/mm3 RBC 3.89 L (4.50-5.90) mil/mm3 Hgb 12.7 L (13.0-17.0) gm/dL Hct 38.5 L (39.0-51.0) % MCV 98.9 (80.0-100.0) fL MCH 32.6 (27.0-34.0) pg MCHC 32.9 (32.0-36.0) % RDW 13.6 (11.6-17.2) % Plt Count 192 (150-450) th/mm3 MPV 8.4 (7.0-11.0) fL Neut % (Auto) 56.8 (16.0-70.0) % Lymph % (Auto) 30.8 (9.0-44.0) % [place] % (Auto) 8.1 H (0.0-8.0) % Eos % (Auto) 3.3 (0.0-4.0) % Baso % (Auto) 1.0 (0.0-2.0) % Neut # (Auto) 3.5 (1.8-7.7) th/mm3 Lymph # (Auto) 1.9 (1.0-4.8) th/mm3 [place] # (Auto) 0.5 (0.0-0.9) th/mm3 Eos # (Auto) 0.2 (0.0-0.4) th/mm3 Baso # (Auto) 0.1 (0.0-0.2) th/mm3 WBC Differential . Differential Comment Auto diff final PT (9.8-11.6) sec INR Ratio APTT (24.3-30.1) sec Sodium 141 (136-145) meq/L Potassium 4.2 (3.5-5.1) meq/L Chloride 108 H (98-107) meq/L Carbon Dioxide 26.4 (21.0-32.0) meq/L Anion Gap 7 (5-15) meq/L BUN 22 H (7-18) mg/dL Creatinine 0.93 (0.60-1.30) mg/dL Estimated GFR 79 L (>89) mL/min Random Glucose 88 (74-106) mg/dL Calcium 8.4 L (8.5-10.1) mg/dL Magnesium 1.9 (1.5-2.5) mg/dL Total Bilirubin 0.7 (0.2-1.0) mg/dL AST 105 H (15-37) U/L ALT 110 H (12-78) U/L Alkaline Phosphatase 85 (45-117) U/L Total Creatine Kinase 84 (39-308) U/L Troponin I Less than 0.02 L (0.02-0.05) ng/mL B-Natriuretic Peptide 491 H (0-100) pg/mL Total Protein 6.9 (6.4-8.2) g/dL Albumin 3.4 (3.4-5.0) g/dL Lipase 85 (73-393) U/L 04/17/18 04/18/18 04/18/18 Range/Units 23:16 02:50 05:58 WBC (4.0-11.0) th/mm3 RBC (4.50-5.90) mil/mm3 Hgb (13.0-17.0) gm/dL Hct (39.0-51.0) % MCV (80.0-100.0) fL MCH (27.0-34.0) pg MCHC (32.0-36.0) % RDW (11.6-17.2) % Plt Count (150-450) th/mm3 MPV (7.0-11.0) fL Neut % (Auto) (16.0-70.0) % Lymph % (Auto) (9.0-44.0) % [place] % (Auto) (0.0-8.0) % Eos % (Auto) (0.0-4.0) % Baso % (Auto) (0.0-2.0) % Neut # (Auto) (1.8-7.7) th/mm3 Lymph # (Auto) (1.0-4.8) th/mm3 [place] # (Auto) (0.0-0.9) th/mm3 Eos # (Auto) (0.0-0.4) th/mm3 Baso # (Auto) (0.0-0.2) th/mm3 WBC Differential Differential Comment PT 10.9 (9.8-11.6) sec INR 1.1 Ratio APTT 32.2 H (24.3-30.1) sec Sodium (136-145) meq/L Potassium (3.5-5.1) meq/L Chloride (98-107) meq/L Carbon Dioxide (21.0-32.0) meq/L Anion Gap (5-15) meq/L BUN (7-18) mg/dL Creatinine (0.60-1.30) mg/dL Estimated GFR (>89) mL/min Random Glucose (74-106) mg/dL Calcium (8.5-10.1) mg/dL Magnesium (1.5-2.5) mg/dL Total Bilirubin (0.2-1.0) mg/dL AST (15-37) U/L ALT (12-78) U/L Alkaline Phosphatase (45-117) U/L Total Creatine Kinase 77 58 (39-308) U/L Troponin I Less than 0.02 L Less than 0.02 L (0.02-0.05) ng/mL B-Natriuretic Peptide (0-100) pg/mL Total Protein (6.4-8.2) g/dL Albumin (3.4-5.0) g/dL Lipase (73-393) U/L Imaging Data Radiologist's impression: Chest X-Ray 04/17/18 22:58 CONCLUSION: 1. Cardiomegaly with positive fluid balance. 2. Mild patchy airspace disease in the right lower lung zone which likely reflect atelectasis. Pneumonia or aspiration cannot be excluded in the proper clinical setting. ECG Data Attestation: I personally reviewed and interpreted this ECG as follows: Interpretation: The patient had an EKG done on arrival that shows a sinus bradycardia heart rate of 59, QRS duration is 123 ms, QTC [address] segment elevation is noted. Discharge Plan Discharge Disposition Patient Disposition: 01 Discharge Home Discharge Condition Condition: Good Discharge Order Discharge Orders: Discharge Order (Routine); Ordered 04/18/18 Ordered By: Zonia Gallegos Discharge Details Anticipated Discharge Date: 04/18/18 Diagnosis: Chest pain, rule out acute myocardial infarction Physicians Team ED Provider: Kiley Roldan Primary Care Provider: Ha Pink Attending Provider: Ruby Fowler Other Providers: Adan Arellano Discharge Interventions Interventions: ED Discharge Assessment Last Done: 04/18/18 03:24 Status ED Status: Left Department Discharge Information Discharge Date/Time: 04/18/18 03:38
[2018-04-17 23:26] LABS: Baso # (Auto) 0.1 th/mm3 (0.0-0.2); Eos # (Auto) 0.2 th/mm3 (0.0-0.4); Eos % (Auto) 3.3 % (0.0-4.0); Hematocrit 38.5 % (39.0-51.0); Hemoglobin 12.7 gm/dL (13.0-17.0); Lymph # (Auto) 1.9 th/mm3 (1.0-4.8); Lymph % (Auto) 30.8 % (9.0-44.0); Mean Corpuscular HGB Conc 32.9 % (32.0-36.0); Mean Corpuscular Hemoglobin 32.6 pg (27.0-34.0); Mean Corpuscular Volume 98.9 fL (80.0-100.0); Mean Platelet Volume 8.4 fL (7.0-11.0); Mono # (Auto) 0.5 th/mm3 (0.0-0.9); Mono % (Auto) 8.1 % (0.0-8.0); Neut # (Auto) 3.5 th/mm3 (1.8-7.7); Neut % (Auto) 56.8 % (16.0-70.0); Platelet Count 192 th/mm3 (150-450); Red Blood Count 3.89 mil/mm3 (4.50-5.90); Red Cell Distribution Width 13.6 % (11.6-17.2); White Blood Count 6.1 th/mm3 (4.0-11.0)
--- NOTE | 2018-04-17 23:37 | XR ---
EXAM DATE: 04/17/2018 10:58 PM EDT AGE/SEX: 77 years / Male INDICATIONS: Short of breath. CLINICAL DATA: This is the patient's initial encounter. Patient reports that signs and symptoms have been present for 1 day and indicates a pain score of 0/10. MEDICAL/SURGICAL HISTORY: Cardiovascular disease. Hypertension. Pacemaker. stents. COMPARISON: No prior exams available for comparison. FINDINGS: Single lead AICD device in place. Mild diffuse interstitial prominence with patchy right lower lung z one airspace disease. Cardiac silhouette is mildly enlarged with indistinct central pulmonary vascula rity. Bony thorax is intact. CONCLUSION: 1. Cardiomegaly with positive fluid balance. 2. Mild patchy airspace disease in the right lower lung zone which likely reflect atelectasis. Pneum onia or aspiration cannot be excluded in the proper clinical setting. Electronically signed by: Karthik Rene MD 04/17/2018 11:36 PM EDT
[2018-04-17 23:39] LABS: Activated Partial Thrombo Time 32.2 sec (24.3-30.1); INR 1.1 Ratio; Prothrombin Time 10.9 sec (9.8-11.6)
[2018-04-17 23:42] LABS: Albumin 3.4 g/dL (3.4-5.0); Anion Gap 7 meq/L (5-15); Aspartate Aminotransferase 105 U/L (15-37); Blood Urea Nitrogen 22 mg/dL (7-18); Calcium 8.4 mg/dL (8.5-10.1); Carbon Dioxide 26.4 meq/L (21.0-32.0); Chloride 108 meq/L (98-107); Glomerular Filtration Rate 79 mL/min (>89); Glucose,Random 88 mg/dL (74-106); Lipase 85 U/L (73-393); Magnesium 1.9 mg/dL (1.5-2.5); Potassium 4.2 meq/L (3.5-5.1); Sodium 141 meq/L (136-145)
[2018-04-17 23:43] LABS: Alanine Aminotransferase 110 U/L (12-78)
[2018-04-17 23:47] LABS: Alkaline Phosphatase 85 U/L (45-117); Total Protein 6.9 g/dL (6.4-8.2)
[2018-04-17 23:49] LABS: Creatine Kinase 84 U/L (39-308)
[2018-04-18] MEDS ORDERED: Acetaminophen 500 MG Tablet PO PRN (02:38)
[2018-04-18 02:40] VITALS: RESP 18
[2018-04-18 03:27] LABS: Creatine Kinase 77 U/L (39-308)
[2018-04-18 06:28] LABS: Creatine Kinase 58 U/L (39-308)
[2018-04-18 08:03] VITALS: BP 124/66; PULSE 53; TEMP 98.7; O2SAT 94
--- NOTE | 2018-04-18 08:49 | P.HPCA ---
History of Present Illness Primary Care Physician: Ha Pink MD Chief Complaint: Chest pain History of Present Illness: 77-year-old with history of atrial fibrillation, hypertension, hyperlipidemia, and coronary artery disease with stents presents for further evaluation of chest pain, fatigue, and shortness of breath. Onset of fatigue and shortness of breath a few days ago, he related to possible water retention. Reports his communications programmer, Dr. Fowler instructed him to take Lasix on a PRN basis but he didn't think of taking within the last week or so. Takes his grandson to daily care each day and noticing increase fatigue and shortness of breath while walking grandson to class. Chest discomfort characterizes tightness. Described as a band around his chest. Mild to moderate in severity without any associated symptoms. Duration hours yesterday. No particular movement or position made pain better or worse. Deep breathing did not make pain better or worse. Initially did not notify his of daughter, but once he did they both encouraged coming to ER for further evaluation. No current chest discomfort. Reports recent cardiac nuclear SPECT test completed last month, results unknown. No recent illness, fever, cough, or injury. Discomfort did not remind him of past cardiac events. States past cardiac event symptoms have always been atypical in nature with vague symptoms. Past cardiac testing March 2018 Lexiscan completed at [facility] 2-3 weeks ago. 03/17/2016 Cardioversion (Dr. Collazo)-access for cardioversion. 01/31/2016 Echocardiogram-systolic function decreased, EF 35%, diffuse hypokinesis, akinesis of basal inferior myocardium. 01/28/2016 Cardiac catheterization STEMI alert (Dr. Fowler) Conclusions: 1. STEMI alert. 2. LV impairment with an ER of 35-40% 3. Culprit circumflex OM system. 4. Successful PTCA of proximal circumflex and obtuse marginal. 5. Occluded mid circumflex that was not able to be opened. December 2015 Cardiac catheterization (approximately 6 weeks prior to STEMI in January 2016) Cardiac catheterization ([place], [place])-x2 cardiac stents placed. 2009 Cardiac ablation for atrial flutter ([place], [place]) Social history Known coronary artery disease, hypertension, and hyperlipidemia. No known diabetes. . Ambulates independently. - Diagnosis (1) Chest pain Review of Systems All other systems reviewed negative except as stated in HPI PMFSH - History History Provided By: Patient - Medical History Medical History: Medical History (Last Reviewed 04/18/18 @ 10:35 by SHIRA Padilla) Afib High cholesterol Hypertension ICD (implantable cardioverter-defibrillator) in place [place] (myocardial infarction) - Surgical History Surgical History: Surgical History (Last Reviewed 04/18/18 @ 10:35 by SHIRA Padilla) H/O right knee surgery History of hip surgery S/P wrist surgery - Tobacco History Second Hand Smoke Exposure: No Tobacco Use In Past 30 Days: No Smoking Status: Never smoker Smoking End Date: quit 20 plus years ago. - Alcohol History How Often Do You Have a Drink Containing Alcohol: Monthly or less - Substance Use History Substance History: No History of Abuse - Travel History Recent Travel in the [place] Within the Last 8 Weeks: No Recent Travel Out of the Country Within the Last 8 Weeks: No - Immunization History Tetanus Immunization: >5 Years Hx Influenza Vaccine This Season: Yes Medications and Allergies Active Medications: Active Medications Acetaminophen (Tylenol) 500 mg PO Q4H PRN PRN Reason: HEADACHE Nitroglycerin (Nitro-Bid 2% Oint) 1 inch TOPICAL Q6HR EUGENE Last Admin: 04/18/18 05:52 Dose: 1 inch Sodium Chloride (Ns Flush) 2 ml IV.FLUSH UNSCH PRN PRN Reason: FLUSH AFTER USING IV ACCESS Sodium Chloride (Ns Flush) 2 ml IV.FLUSH BID EUGENE Sodium Chloride (Ns Flush) 2 ml IV.FLUSH PRN PRN PRN Reason: FLUSH AFTER USING IV ACCESS Allergies Allergy/AdvReac Type Severity Reaction Status Date / Time codeine Allergy Severe Rash Verified 04/17/18 21:51 ibuprofen Allergy Severe Rash Verified 04/17/18 21:51 Iodinated Contrast- Oral and Allergy Severe Hives Verified 04/17/18 21:51 IV Dye NSAIDS (Non-Steroidal Allergy Severe Rash Verified 04/17/18 21:51 Anti-Inflamma Opioids - Morphine Analogues Allergy Severe Hives Verified 04/17/18 21:51 diatrizoate meglumine Allergy Intermediate Rash Verified 04/17/18 21:51 gadobenic acid Allergy Intermediate Rash Verified 04/17/18 21:51 gadodiamide Allergy Intermediate Rash Verified 04/17/18 21:51 gadoteridol Allergy Intermediate Rash Verified 04/17/18 21:51 iodixanol Allergy Intermediate Rash Verified 04/17/18 21:51 iohexol Allergy Intermediate Rash Verified 08/11/17 13:15 morphine Allergy Intermediate pustular Verified 08/11/17 13:15 rash, itching naproxen Allergy Intermediate hives Verified 08/11/17 13:15 Home Medications Medication Instructions Recorded Confirmed Type apixaban [Eliquis] 5 mg PO BID 04/17/18 04/17/18 History atorvastatin 80 mg PO DAILY 04/17/18 04/17/18 History furosemide [Lasix] 20 mg PO DAILY 04/17/18 04/17/18 History gabapentin 300 mg PO QPM 04/17/18 04/17/18 History lisinopril 10 mg PO DAILY 04/17/18 04/17/18 History metoprolol succinate 50 mg PO DAILY 04/17/18 04/17/18 History spironolactone 25 mg PO DAILY 04/17/18 04/17/18 History Exam Vital signs: Vital Signs 04/17/18 21:47 04/17/18 21:51 04/17/18 23:33 Temperature 98.0 F Pulse Rate 66 52 L 50 L Pulse Rate [Right Brachial] Respiratory Rate 18 18 17 Blood Pressure 169/96 H 134/87 113/72 Blood Pressure [Left Arm] Blood Pressure [Right Arm] Pulse Oximetry 98 95 94 L 04/18/18 01:15 04/18/18 02:39 04/18/18 08:00 Temperature 98.7 F Pulse Rate 55 L 53 L Pulse Rate [Right Brachial] 56 L Respiratory Rate 17 18 18 Blood Pressure 132/62 124/66 Blood Pressure [Left Arm] 134/87 Blood Pressure [Right Arm] 123/62 Pulse Oximetry 96 96 94 L Intake & Output 04/17/18 04/18/18 04/18/18 18:59 06:59 18:59 Weight 68.039 kg Other: # Voids 3 Weight On Admission 68.039 kg Narrative: GENERAL: Alert and oriented x4 WN, WD, NAD, pleasant, elderly male HEAD: NC, AT EYES: Sclera clear, conjunctiva without injection ENT: Mucous membranes pink and moist CV: RRR, without murmur, rub, gallop, no JVD, S1-S2 no S3-S4. RESP: Clear lungs throughout bilateral, no crackles, wheeze, rhonchi, symmetrical chest rise, nonlabored, able to speak in full sentences ABD: Soft, NT, ND, no masses, positive bowel tones EXT: Pulses +2x4, no dependent edema MS: Normal tone x4 extremities, nontender, no obvious deformities, full range of motion NEURO: CN II through CN XII grossly intact, motor strength 5/5, gait WNL PSYCH: A+O x4, pleasant affect, appropriate speech,mood, insight and judgment. Usually upon awakening slow to recall events and a poor historian, however once awaken for a few minutes able to provide an adequate history. SKIN: Normal turgor, normal texture, warm, day Results 04/17/18 23:16 04/17/18 23:16 Cardiac Enzymes 04/17/18 04/17/18 04/18/18 Range/Units 23:16 23:16 02:50 AST 105 H (15-37) U/L Troponin I Less than 0.02 L Less than 0.02 L (0.02-0.05) ng/mL B-Natriuretic Peptide 491 H (0-100) pg/mL 04/18/18 Range/Units 05:58 AST (15-37) U/L Troponin I Less than 0.02 L (0.02-0.05) ng/mL B-Natriuretic Peptide (0-100) pg/mL Coagulation 04/17/18 04/17/18 Range/Units 23:16 23:16 PT 10.9 (9.8-11.6) sec APTT 32.2 H (24.3-30.1) sec B-Natriuretic Peptide 491 H (0-100) pg/mL CBC 04/17/18 Range/Units 23:16 WBC 6.1 (4.0-11.0) th/mm3 RBC 3.89 L (4.50-5.90) mil/mm3 Hgb 12.7 L (13.0-17.0) gm/dL Hct 38.5 L (39.0-51.0) % Plt Count 192 (150-450) th/mm3 Neut # (Auto) 3.5 (1.8-7.7) th/mm3 Lymph # (Auto) 1.9 (1.0-4.8) th/mm3 [place] # (Auto) 0.5 (0.0-0.9) th/mm3 Eos # (Auto) 0.2 (0.0-0.4) th/mm3 Baso # (Auto) 0.1 (0.0-0.2) th/mm3 Comprehensive Metabolic Panel 04/17/18 Range/Units 23:16 Sodium 141 (136-145) meq/L Potassium 4.2 (3.5-5.1) meq/L Chloride 108 H (98-107) meq/L Carbon Dioxide 26.4 (21.0-32.0) meq/L BUN 22 H (7-18) mg/dL Creatinine 0.93 (0.60-1.30) mg/dL Calcium 8.4 L (8.5-10.1) mg/dL AST 105 H (15-37) U/L ALT 110 H (12-78) U/L Alkaline Phosphatase 85 (45-117) U/L Total Protein 6.9 (6.4-8.2) g/dL Albumin 3.4 (3.4-5.0) g/dL Intake and Output 04/17/18 04/18/18 04/18/18 22:59 06:59 14:59 Other: # Voids 3 Weight 68.039 kg 68.039 kg Weight On Admission 68.039 kg - Imaging and Cardiology Imaging: Impressions Chest X-Ray 04/17/18 22:58 CONCLUSION: 1. Cardiomegaly with positive fluid balance. 2. Mild patchy airspace disease in the right lower lung zone which likely reflect atelectasis. Pneumonia or aspiration cannot be excluded in the proper clinical setting. EKG interpretations - Dysrhythmias Sinus rhythms and dysrhythmias: sinus bradycardia (< 50 bpm) (Normal sinus bradycardia, Q waves inferior leads, no ST-T segment changes) Caprini VTE Risk Assessment Caprini VTE Risk Assessment: Moderate/High Risk (score >= 2) Caprini Risk Assessment Model: Point Value = 1 Point Value = 2 Point Value = 3 Point Value = 5 Age 41-60 Minor surgery BMI > 25 kg/m2 Swollen legs Varicose veins or History of unexplained or recurrent spontaneous Oral contraceptives or hormone replacement Sepsis (< 1 month) Serious lung disease, including pneumonia (< 1 month) Abnormal pulmonary function Acute myocardial infarction Congestive heart failure (< 1 month) History of inflammatory bowel disease Medical patient at bed rest Age 61-74 Arthroscopic surgery Major open surgery (> 45 min) Laparoscopic surgery (> 45 min) Malignancy Confined to bed (> 72 hours) Immobilizing plaster cast Central venous access Age >= 75 History of VTE Family history of VTE Factor V Leiden Prothrombin [id number] Lupus anticoagulant Anticardiolipin antibodies Elevated serum homocysteine Heparin-induced thrombocytopenia Other congenital or acquired thrombophilia Stroke (< 1 month) Elective arthroplasty Hip, pelvis, or leg fracture Acute spinal cord injury (< 1 month) Prophylaxis Regimen: Total Risk Factor Score Risk Level Prophylaxis Regimen 0-1 Low Early ambulation 2 Moderate Order ONE of the following: *Sequential Compression Device (SCD) *Heparin 5000 units SQ BID 3-4 Higher Order ONE of the following medications: *Heparin 5000 units SQ TID *Enoxaparin/Lovenox 40 mg SQ daily (WT < 150 kg, CrCl > 30 mL/min) *Enoxaparin/Lovenox 30 mg SQ daily (WT < 150 kg, CrCl > 10-29 mL/min) *Enoxaparin/Lovenox 30 mg SQ BID (WT < 150 kg, CrCl > 30 mL/min) AND/OR *Sequential Compression Device (SCD) 5 or more Highest Order ONE of the following medications: *Heparin 5000 units SQ TID (Preferred with Epidurals) *Enoxaparin/Lovenox 40 mg SQ daily (WT < 150 kg, CrCl > 30 mL/min) *Enoxaparin/Lovenox 30 mg SQ daily (WT < 150 kg, CrCl > 10-29 mL/min) *Enoxaparin/Lovenox 30 mg SQ BID (WT < 150 kg, CrCl > 30 mL/min) AND *Sequential Compression Device (SCD) Assessment and Plan - Assessment (1) Chest pain Code(s): R07.9 - Chest pain, unspecified Status: Acute Plan: Admitted chest pain center. ACS ruled out 3 sets of EKGs and cardiac enzymes. Monitor on telemetry overnight. Seen and evaluated by Dr. Ramiro Nogueira. Will notify Dr. Fowler of patient's arrival to ER and verify recent cardiac testing. [address] Malcolm Md will review her records and call back for further instructions. 0807 Return call from vee Fitch for discharge if mediation back to baseline. Neuro status assessed and patient A+Ox4, no neuro deficits, improved memory and able to provide detailed reason for coming to ER. Plans to discharge. H&P: Quality - VTE Deep Vein Thrombosis/Pulmonary Embolism Present on Admission: No (1) Chest pain Qualifiers: Chest pain type: unspecified Qualified Code(s): R07.9 - Chest pain, unspecified
--- NOTE | 2018-04-18 14:51 | ECG ---
Date Performed: 04/17/2018 Time Performed: 22:03:13 PTAGE: 77 years EKG: SINUS BRADYCARDIA PROBABLE INFERIOR MYOCARDIAL INFARCTION ABNORMAL ECG NO PREVIOUS TRACING DOCTOR: Ramiro Nogueira Interpretating Date/Time 04/18/2018 14:51:28
--- NOTE | 2018-04-18 14:55 | ECG ---
Date Performed: 04/18/2018 Time Performed: 05:49:35 PTAGE: 77 years EKG: SINUS BRADYCARDIA INFERIOR MYOCARDIAL INFARCTION ABNORMAL ECG PREVIOUS TRACING : 08/12/2017 04.15 Since previous tracing, no significant change noted DOCTOR: Ramiro Nogueira Interpretating Date/Time 04/18/2018 14:52:55
== END 2018-04-18 10:07 | disposition home or self-care (01) ==
LOC: NEPC 21:44 → NEDA 21:44 → NEPGCP 04-18 03:32
PROVIDERS: ADMIT Internal Medicine Interventional Cardiology; ATTEND Internal Medicine Interventional Cardiology